=== PATIENT | female | born 1975 | race American Indian/Alaskan Native ===

== ENCOUNTER 2019-02-24 08:59 | Emergency (ER) | payer OTHER ==
[2019-02-24 09:08] VITALS: BP 180/91
--- NOTE | 2019-02-24 09:43 | Emergency Department Report ---
Abscess Boil HPI - HPI Chief Complaint: Skin/Abscess/Foreign Body Stated Complaint: BOIL Time Seen by Provider: 02/24/19 09:31 Duration: 2 Days Location: Perianal Severity: Moderate History: Yes Pain, Yes Purulent Drainage, No Fever, No Numbness, No Foreign Body, No Previous History, No Insect Bite HPI: This is a 43-year-old -Af[place] female who presents to the emergency room with a painful abscess to left labia for 2 days. She reports noticing drainage in route to the emergency room. Reports continued pain. Home Medications: Previous Rx's Medication Instructions Recorded Last Taken Type Sulfamethoxazole/Trimethoprim 1 each PO BID #20 tablet 02/24/19 Unknown Rx [Bactrim DS TAB] Allergies/Adverse Reactions: Allergies Allergy/AdvReac Type Severity Reaction Status Date / Time No Known Allergies Allergy Unverified 02/24/19 09:01 ED Review of Systems ROS: Stated complaint: BOIL Other details as noted in HPI Constitutional: denies: chills, fever Respiratory: denies: cough, shortness of breath, wheezing Cardiovascular: denies: chest pain, palpitations Gastrointestinal: denies: abdominal pain, nausea, diarrhea Skin: lesions (left labia abscess with drainage). denies: rash Neurological: denies: headache, weakness, paresthesias Psychiatric: denies: anxiety, depression ED Past Medical Hx - Past Medical History Previous Medical History?: Yes Hx Hypertension: Yes - Surgical History Past Surgical History?: Yes Hx Cholecystectomy: Yes - Social History Smoking Status: Never Smoker Substance Use Type: None - Medications Home Medications: Home Medications Medication Instructions Recorded Confirmed Last Taken Type Sulfamethoxazole/Trimethoprim 1 each PO BID #20 tablet 02/24/19 Unknown Rx [Bactrim DS TAB] ED Abscess Boil Physical Exam - Exam General: Vital signs noted. No distress. Alert and acting appropriately. Front/Back of Body, Lg (Color): 1 - 1 cm non-fluctuant nodule to left labia majora, tenderness, serosanguineous drainage, no erythema Size: 1 cm Exam: Yes Tenderness, Yes Normal Neurologic Exam, Yes Normal Circulation, No Fluctuance, No Surrounding Cellulites/Erythema, No Lymphangitis, No Crepitation, No Heart Murmur ED Course Vital Signs 02/24/19 09:07 Temperature 98.7 F Pulse Rate 84 Respiratory 16 Rate Blood Pressure 180/91 [Right] O2 Sat by Pulse 97 Oximetry Critical care attestation.: If time is entered above; I have spent that time in minutes in the direct care of this critically ill patient, excluding procedure time. ED Medical Decision Making - Medical Decision Making Patient is stable and examined by me. Physical assessment of 1 cm nonfluctuance nodule to left labia majora. No acute signs of distress noted. I&D not indicated. Discussed plan to start bactrim DS and ibuprofen with patient. Educated patient on follow up plan to have wound reassessed in 2-3 days. Patient agrees to ED plan of care. Discharged home and follow up with PCP in 2-3 days. ED Disposition Clinical Impression: Bartholin's gland abscess Disposition: TO HOME OR SELFCARE Is pt being admited?: No Condition: Stable Instructions: Abscess (ED) Additional Instructions: Complete full round of antibiotic as prescribed. Follow up with PCP or ER in 2-3 days for wound reevaluation. Return to ER if foul smelling discharge, swelling, or severe pain to wound. Prescriptions: Sulfamethoxazole/Trimethoprim [Bactrim DS TAB] 1 each PO BID #20 tablet Referrals: [facility] [Outside] - 3-5 Days [facility] [Outside] - 3-5 Days [facility] [Outside] - 3-5 Days Forms: Work/School Release Form(ED) Time of Disposition: 09:52
== END 2019-02-24 09:50 | disposition home or self-care (01) ==
LOC: ED 08:59
DX: N75.1 Abscess of Bartholin's gland (principal); I10 Essential (primary) hypertension; Z90.49 Acquired absence of other specified parts of digestive tract; Z79.899 Other long term (current) drug therapy

== ENCOUNTER 2019-09-13 18:00 | Emergency (ER) | payer OTHER ==
[2019-09-13] MEDS ORDERED: cloNIDine 0.2 MG TAB PO STA (18:19)
--- NOTE | 2019-09-13 18:44 | Emergency Department Report ---
ED General Adult HPI - General Chief complaint: Dental/Oral Stated complaint: TOOTHACHE/HBP Source: patient Mode of arrival: Ambulatory Limitations: No Limitations - History of Present Illness Initial comments: 44-year-old morbidly obese -[place] female with a past medical history of hypertension for which she is noncompliant with the current medication presents emergency department seeking treatment for her hypertension. She was at her dentist to receive treatment for a a tooth however was refused due to her hypertension. She reports being asymptomatic but unable to get in with her primary care provider for further treatment options Quality: dull Consistency: constant Improves with: none Worsens with: none Associated Symptoms: denies other symptoms Treatments Prior to Arrival: none - Related Data Previous Rx's Medication Instructions Recorded Last Taken Type Sulfamethoxazole/Trimethoprim 1 each PO BID #20 tablet 02/24/19 Unknown Rx [Bactrim DS TAB] amLODIPine 10 mg PO DAILY #20 tab 09/13/19 Unknown Rx Allergies Allergy/AdvReac Type Severity Reaction Status Date / Time No Known Allergies Allergy Unverified 02/24/19 09:01 ED Review of Systems ROS: Stated complaint: TOOTHACHE/HBP Other details as noted in HPI Comment: All other systems reviewed and negative ED Past Medical Hx - Past Medical History Previous Medical History?: Yes Hx Hypertension: Yes - Surgical History Past Surgical History?: Yes Hx Cholecystectomy: Yes - Social History Smoking Status: Never Smoker Substance Use Type: None - Medications Home Medications: Home Medications Medication Instructions Recorded Confirmed Last Taken Type Sulfamethoxazole/Trimethoprim 1 each PO BID #20 tablet 02/24/19 Unknown Rx [Bactrim DS TAB] amLODIPine 10 mg PO DAILY #20 tab 09/13/19 Unknown Rx ED Physical Exam - General Limitations: No Limitations General appearance: alert, in no apparent distress - Head Head exam: Present: atraumatic, normocephalic - Eye Eye exam: Present: normal appearance, PERRL, EOMI Pupils: Present: normal accommodation - ENT ENT exam: Present: normal exam, normal orophraynx, mucous membranes moist, TM's normal bilaterally - Neck Neck exam: Present: normal inspection - Respiratory Respiratory exam: Present: normal lung sounds bilaterally. Absent: respiratory distress - Cardiovascular Cardiovascular Exam: Present: regular rate, normal rhythm. Absent: systolic murmur, diastolic murmur, rubs, gallop - GI/Abdominal GI/Abdominal exam: Present: soft, normal bowel sounds - Extremities Exam Extremities exam: Present: normal inspection - Back Exam Back exam: Present: normal inspection - Neurological Exam Neurological exam: Present: alert, oriented X3 - Psychiatric Psychiatric exam: Present: normal affect, normal mood - Skin Skin exam: Present: warm, dry, intact, normal color. Absent: rash ED Course Vital Signs 09/13/19 18:06 Temperature 98.9 F Pulse Rate 72 Respiratory 16 Rate Blood Pressure 225/102 O2 Sat by Pulse 98 Oximetry Critical care attestation.: If time is entered above; I have spent that time in minutes in the direct care of this critically ill patient, excluding procedure time. ED Disposition Clinical Impression: Hypertension Disposition: DC-01 TO HOME OR SELFCARE Is pt being admited?: No Does the pt Need Aspirin: No Condition: Stable Instructions: Hypertension (ED), DASH Eating Plan (ED), Low Sodium Diet (ED) Prescriptions: amLODIPine 10 mg PO DAILY #20 tab Referrals: PRIMARY CAREMD [Primary Care Provider] - 3-5 Days ANTONI SIMS MD [Staff Physician] - 3-5 Days
[2019-09-13 19:48] VITALS: BP 162/98
== END 2019-09-13 20:32 | disposition home or self-care (01) ==
LOC: ED 18:00
DX: I10 Essential (primary) hypertension (principal); K08.89 Other specified disorders of teeth and supporting structures; Z90.49 Acquired absence of other specified parts of digestive tract; Z79.899 Other long term (current) drug therapy
CPT/HCPCS: 99282

== ENCOUNTER 2020-12-17 21:42 | Inpatient (IN) | payer OTHER, SELFPAY ==
[2020-12-17] MEDS ORDERED: dexAMETHasone 4 MG/ML VIAL IM ONE (22:40)
[2020-12-17] MEDS ORDERED: ALBUTEROL 2.5 MG/3 ML NEBU IH ONE (22:40)
--- NOTE | 2020-12-17 22:42 | Event Note ---
ED Screening Note ED Screening Note: 45-year-old [place] female with elevated BMI and past medical history of hypertension asthma department complaining of a 1+ week history of progressive worsening dyspnea associated with cough and mucus production. Had a Covid test done 3 days ago but is yet to receive the Covid results. No diarrhea no con stipation no lotion any swelling no hemoptysis no hematemesis hematochezia This initial assessment/diagnostic orders/clinical plan/treatment(s) is/are subject to change based on patients health status, clinical progression and re- assessment by fellow clinical providers in the ED. Further treatment and workup at subsequent clinical providers discretion. Patient/guardian urged not to elope from the ED as their condition may be serious if not clinically assessed and managed. Initial orders include: Chest x-ray, labs, ambulatory pulse oximetry facemask on patient
[2020-12-17] MEDS ORDERED: ACETAMINOPHEN 500 MG TAB PO ONE (22:44)
--- NOTE | 2020-12-17 23:08 | XRay Report ---
CHEST 2 VIEWS INDICATION / CLINICAL INFORMATION: SOB and Cough Covid. FINDINGS: SUPPORT DEVICES: None. HEART / MEDIASTINUM: No significant abnormality. LUNGS / PLEURA: Severe bilateral airspace pneumonia. Signer Name: Ze Dubois MD Signed: 12/17/2020 11:04 PM Workstation Name: [id number]
--- NOTE | 2020-12-17 23:32 | Emergency Department Report ---
ED Shortness of Breath HPI - General Chief Complaint: Dyspnea/Respdistress Stated Complaint: SOB Time Seen by Provider: 12/17/20 22:39 Source: patient Mode of arrival: Ambulatory Limitations: No Limitations - History of Present Illness Initial Comments: 45-year-old Chinese female with elevated BMI and past medical history of hypertension asthma department complaining of a 1+ week history of progressive worsening dyspnea associated with cough and mucus production. Had a Covid test done 3 days ago but is yet to receive the Covid results. No diarrhea no constipation no lotion any swelling no hemoptysis no hematemesis hematochezia Complaint: shortness of breath -: Gradual Consistency: constant Improves With: nothing Worsens With: exertion, movement - Related Data Previous Rx's Medication Instructions Recorded Last Taken Type Sulfamethoxazole/Trimethoprim 1 each PO BID #20 tablet 02/24/19 Unknown Rx [Bactrim DS TAB] amLODIPine 10 mg PO DAILY #20 tab 09/13/19 Unknown Rx Allergies Allergy/AdvReac Type Severity Reaction Status Date / Time No Known Allergies Allergy Verified 12/17/20 22:43 ED Review of Systems ROS: Stated complaint: SOB Other details as noted in HPI Comment: All other systems reviewed and negative ED Past Medical Hx - Past Medical History Previous Medical History?: Yes Hx Hypertension: Yes - Surgical History Past Surgical History?: Yes Hx Cholecystectomy: Yes - Social History Smoking Status: Never Smoker Substance Use Type: None - Medications Home Medications: Home Medications Medication Instructions Recorded Confirmed Last Taken Type Sulfamethoxazole/Trimethoprim 1 each PO BID #20 tablet 02/24/19 Unknown Rx [Bactrim DS TAB] amLODIPine 10 mg PO DAILY #20 tab 09/13/19 Unknown Rx ED Physical Exam - General Limitations: No Limitations General appearance: alert, in distress - Head Head exam: Present: atraumatic, normocephalic - Eye Eye exam: Present: normal appearance - ENT ENT exam: Present: mucous membranes moist - Neck Neck exam: Present: normal inspection - Respiratory Respiratory exam: Present: normal lung sounds bilaterally, decreased breath sounds. Absent: respiratory distress - Cardiovascular Cardiovascular Exam: Present: regular rate, normal rhythm. Absent: systolic murmur, diastolic murmur, rubs, gallop - GI/Abdominal GI/Abdominal exam: Present: soft, normal bowel sounds - Extremities Exam Extremities exam: Present: normal inspection - Back Exam Back exam: Present: normal inspection - Neurological Exam Neurological exam: Present: alert, oriented X3 - Psychiatric Psychiatric exam: Present: normal affect, normal mood - Skin Skin exam: Present: warm, dry, intact, normal color. Absent: rash ED Course Vital Signs 12/17/20 12/17/20 12/17/20 22:40 22:50 23:17 Temperature 102.6 F H Pulse Rate 102 H Pulse Rate [ 100 H Bilateral] Respiratory 18 18 Rate Respiratory 38 H Rate [Bilateral ] Blood Pressure 137/94 [Left] O2 Sat by Pulse 87 Oximetry - Consultations Consultation #1: 12/18/20 00:[address] Wills for admission. Critical care attestation.: If time is entered above; I have spent that time in minutes in the direct care of this critically ill patient, excluding procedure time. ED Disposition Clinical Impression: Hypoxemia, Pneumonia of both lower lobes Disposition: ADMITTED INPATIENT Is pt being admited?: Yes Does the pt Need Aspirin: No Condition: Stable Instructions: Bacterial Pneumonia (ED)
[2020-12-17] MEDS ORDERED: cefTRIAXone/NS 1 GM/50 ML 1 GM/50 ML BAG IV ONE (23:33)
[2020-12-17] MEDS ORDERED: AZITHROMYCIN/NS 500 MG/250 ML 500 MG/250 ML BAG IV ONE (23:36)
[2020-12-18 00:03] LABS: Basophils % (Auto) 0.3 % (0.0-1.8); Hematocrit 36.8 % (30.3-42.9); Hemoglobin 12.3 gm/dl (10.1-14.3); Lymphocytes # (Auto) 1.3 K/mm3 (1.2-5.4); Lymphocytes % (Auto) 25.7 % (13.4-35.0); Mean Corpuscular HGB Conc 34 % (30-34); Mean Corpuscular Volume 88 fl (79-97); Monocytes # (Auto) 0.4 K/mm3 (0.0-0.8); Monocytes % (Auto) 7.9 % (0.0-7.3); Platelet Count 238 K/mm3 (140-440); Red Blood Count 4.16 M/mm3 (3.65-5.03); Red Cell Distribution Width 13.9 % (13.2-15.2)
[2020-12-18 00:13] LABS: Alanine Aminotransferase 30 units/L (7-56); Albumin 3.2 g/dL (3.9-5); BUN/Creatinine Ratio 11; Blood Urea Nitrogen 11 mg/dL (7-17); Calcium 8.2 mg/dL (8.4-10.2); Hemolysis Index 3
[2020-12-18] MEDS ORDERED: ACETAMINOPHEN 325 MG TAB PO PRN (01:52)
[2020-12-18] MEDS ORDERED: ONDANSETRON 4 MG/2 ML INJ IV PRN (01:52)
[2020-12-18] MEDS ORDERED: ALBUTEROL 2.5 MG/3 ML NEBU IH PRN (01:52)
[2020-12-18] MEDS ORDERED: hydrALAZINE 20 MG/1 ML INJ IV PRN (01:55)
--- NOTE | 2020-12-18 02:01 | History and Physical Report ---
History of Present Illness Date of examination: 12/18/20 Date of admission: 12/18/20 Chief complaint: Shortness of breath Coughing History of present illness: 45-year-old female with past medical history of hypertension asthma and obesity was brought to the emergency room because of a 1+ week history of progressive worsening dyspnea associated with cough and mucus production. Had a Covid test done 3 days ago but is yet to receive the Covid results. No diarrhea no constipation no lotion any swelling no hemoptysis no hematemesis hematochezia Patient never take any Covid vaccination. In the emergency room patient chest x-ray showed severe bilateral airspace pneumonia. Med rec is done and advanced discharge planning is initiated Past History Past Medical History: hypertension, other (Obesity asthma) Medications and Allergies Allergies Allergy/AdvReac Type Severity Reaction Status Date / Time No Known Allergies Allergy Verified 12/17/20 22:43 Home Medications Medication Instructions Recorded Confirmed Last Taken Type Sulfamethoxazole/Trimethoprim 1 each PO BID #20 tablet 02/24/19 Unknown Rx [Bactrim DS TAB] amLODIPine 10 mg PO DAILY #20 tab 09/13/19 Unknown Rx Review of Systems All systems: negative Cardiovascular: shortness of breath, dyspnea on exertion Respiratory: cough, cough with sputum, shortness of breath, dyspnea on exertion Exam - Constitutional Vitals: Temp Pulse Resp BP Pulse Ox 102.6 F H 100 H 38 H 137/94 87 12/17/20 22:40 12/17/20 23:17 12/17/20 23:17 12/17/20 22:40 12/17/20 22:40 General appearance: Present: no acute distress, well-nourished - EENT Eyes: Present: PERRL ENT: hearing intact, clear oral mucosa - Neck Neck: Present: supple, normal ROM - Respiratory Respiratory effort: normal Respiratory: bilateral: diminished - Cardiovascular Heart Sounds: Present: S1 & S2. Absent: rub, click - Extremities Extremities: pulses symmetrical, No edema Peripheral Pulses: within normal limits - Abdominal General gastrointestinal: Present: soft, non-tender, non-distended, normal bowel sounds Female genitourinary: Present: normal - Integumentary Integumentary: Present: clear, warm, dry - Musculoskeletal Musculoskeletal: gait normal, strength equal bilaterally - Psychiatric Psychiatric: appropriate mood/affect, intact judgment & insight - Neurologic Neurologic: CNII-XII intact, moves all extremities Results - Labs CBC & Chem 7: 12/17/20 23:36 12/17/20 23:36 Labs: Laboratory Last Values WBC 5.1 K/mm3 (4.5-11.0) 12/17/20 23:36 RBC 4.16 M/mm3 (3.65-5.03) 12/17/20 23:36 Hgb 12.3 gm/dl (10.1-14.3) 12/17/20 23:36 Hct 36.8 % (30.3-42.9) 12/17/20 23:36 MCV 88 fl (79-97) 12/17/20 23:36 MCH 30 pg (28-32) 12/17/20 23:36 MCHC 34 % (30-34) 12/17/20 23:36 RDW 13.9 % (13.2-15.2) 12/17/20 23:36 Plt Count 238 K/mm3 (140-440) 12/17/20 23:36 Lymph % (Auto) 25.7 % (13.4-35.0) 12/17/20 23:36 [place] % (Auto) 7.9 % (0.0-7.3) H 12/17/20 23:36 Eos % (Auto) 0.0 % (0.0-4.3) 12/17/20 23:36 Baso % (Auto) 0.3 % (0.0-1.8) 12/17/20 23:36 Lymph # (Auto) 1.3 K/mm3 (1.2-5.4) 12/17/20 23:36 [place] # (Auto) 0.4 K/mm3 (0.0-0.8) 12/17/20 23:36 Eos # (Auto) 0.0 K/mm3 (0.0-0.4) 12/17/20 23:36 Baso # (Auto) 0.0 K/mm3 (0.0-0.1) 12/17/20 23:36 Seg Neutrophils % 66.1 % (40.0-70.0) 12/17/20 23:36 Seg Neutrophils # 3.4 K/mm3 (1.8-7.7) 12/17/20 23:36 Sodium 137 mmol/L (137-145) 12/17/20 23:36 Potassium 3.5 mmol/L (3.6-5.0) L 12/17/20 23:36 Chloride 102.0 mmol/L (98-107) 12/17/20 23:36 Carbon Dioxide 24 mmol/L (22-30) 12/17/20 23:36 Anion Gap 15 mmol/L 12/17/20 23:36 BUN 11 mg/dL (7-17) 12/17/20 23:36 Creatinine 1.0 mg/dL (0.6-1.2) 12/17/20 23:36 Estimated GFR > 60 ml/min 12/17/20 23:36 BUN/Creatinine Ratio 11 % 12/17/20 23:36 Glucose 105 mg/dL (65-100) H 12/17/20 23:36 Calcium 8.2 mg/dL (8.4-10.2) L 12/17/20 23:36 Total Bilirubin 0.30 mg/dL (0.1-1.2) 12/17/20 23:36 AST 68 units/L (5-40) H 12/17/20 23:36 ALT 30 units/L (7-56) 12/17/20 23:36 Alkaline Phosphatase 65 units/L (35-129) 12/17/20 23:36 Total Protein 7.2 g/dL (6.3-8.2) 12/17/20 23:36 Albumin 3.2 g/dL (3.9-5) L 12/17/20 23:36 Albumin/Globulin Ratio 0.8 % 12/17/20 23:36 - Imaging and Cardiology Chest x-ray: report reviewed Assessment and Plan VTE prophylaxis?: Chemical Plan of care discussed with patient/family: Yes - Patient Problems (1) Acute respiratory failure with hypoxia Current Visit: Yes Status: Acute Plan to address problem: Admit the patient to the medical floor. Oxygen by nasal cannula 3 L/min. Albuterol via nebulizer every 4 hours as needed. Rocephin 2 g IV daily. Zithromax 500 mg IV daily. Dexamethasone 6 mg IV daily. Blood cultures sputum culture. Follow Covid PCR and Covid inflammatory marker. Reconsult pulmonary as well as infectious disease for evaluation. (2) Suspected COVID-19 virus infection Current Visit: Yes Status: Acute Plan to address problem: Oxygen by nasal cannula 3 L/min. Albuterol via nebulizer every 4 hours as need ed. Rocephin 2 g IV daily. Zithromax 500 mg IV daily. Dexamethasone 6 mg IV daily. Blood cultures sputum culture. Follow Covid PCR and Covid inflammatory marker. Reconsult pulmonary as well as infectious disease for evaluation. (3) Pneumonia Current Visit: Yes Status: Acute Plan to address problem: Oxygen by nasal cannula 3 L/min. Albuterol via nebulizer every 4 hours as needed. Rocephin 2 g IV daily. Zithromax 500 mg IV daily. Blood cultures sputum culture. (4) Hypertension Current Visit: Yes Status: Acute Plan to address problem: Hydralazine 10 mg IV every 6 hours as needed. Amlodipine 10 mg p.o. daily. We will monitor the blood pressure closely (5) Asthma Current Visit: Yes Status: Acute Plan to address problem: Oxygen by nasal cannula 3 L/min. Albuterol via nebulizer every 4 hours as needed. Dexamethasone 6 mg IV daily. Reconsult pulmonary . (6) DVT prophylaxis Current Visit: Yes Status: Acute Plan to address problem: Heparin 5000 units subcu every 8 hours for DVT prophylaxis. Pepcid 20 mg p.o. twice daily for GI prophylaxis. Patient is a full code
[2020-12-18] MEDS: HEPARIN 5,000 UNIT/1 ML VIAL SUB-Q SCH ×2 (07:24→14:42)
[2020-12-18] MEDS ORDERED: dexAMETHasone 4 MG/ML VIAL IV SCH (10:00)
[2020-12-18] MEDS: AZITHROMYCIN/NS 500 MG/250 ML 500 MG/250 ML BAG IV SCH (10:20)
[2020-12-18] MEDS: cefTRIAXone/NS 2 GM/100 ML 2 GM/100 ML BAG IV SCH (10:20)
[2020-12-18] MEDS: FAMOTIDINE 20 MG TAB PO SCH (10:24)
[2020-12-18] MEDS: amLODIPine 10 MG TAB PO SCH (10:24)
--- NOTE | 2020-12-18 14:10 | Consultation ---
History of Present Illness - Reason for Consult Consult date: 12/18/20 Pneumonia, hypoxia Requesting physician: ALFREDO ALONZO - History of Present Illness The patient is a 45-year-old female with morbid obesity, asthma, hypertension admitted with shortness of breath, cough. Got Covid test done as an outpatient but results are not available. Upon evaluation in the ER, febrile with a T-max of 102.6 F, noted to be hypoxic requiring nonrebreather mask. Labs showed normal WBC, creatinine normal, mild transaminitis. Other markers are pending. Chest x-ray showed severe bilateral airspace disease. Review of Systems: reviewed in the chart, unable to obtain, minimize risk of transmission Past History Past Medical History: hypertension, other (Obesity asthma) Medications and Allergies Allergies Allergy/AdvReac Type Severity Reaction Status Date / Time No Known Allergies Allergy Verified 12/17/20 22:43 Home Medications Medication Instructions Recorded Confirmed Last Taken Type Sulfamethoxazole/Trimethoprim 1 each PO BID #20 tablet 02/24/19 Unknown Rx [Bactrim DS TAB] amLODIPine 10 mg PO DAILY #20 tab 09/13/19 Unknown Rx Active Meds: Active Medications Acetaminophen (Acetaminophen 325 Mg Tab) 650 mg PO Q4H PRN PRN Reason: Pain MILD(1-3)/Fever >100.5/CRISOSTOMO Albuterol (Albuterol 2.5 Mg/3 Ml Nebu) 2.5 mg IH Q3HRT PRN PRN Reason: Shortness Of Breath Amlodipine Besylate (Amlodipine 10 Mg Tab) 10 mg PO DAILY [facility] Last Admin: 12/18/20 10:24 Dose: 10 mg Documented by: Dexamethasone (Dexamethasone 4 Mg/Ml Vial) 6 mg IV DAILY [facility] Stop: 12/26/20 10:01 Last Admin: 12/18/20 10:19 Dose: 6 mg Documented by: Famotidine (Famotidine 20 Mg Tab) 20 mg PO BID [facility] Last Admin: 12/18/20 10:24 Dose: 20 mg Documented by: Heparin Sodium (Porcine) (Heparin 5,000 Unit/1 Ml Vial) 5,000 unit SUB-Q Q8HR [facility] Last Admin: 12/18/20 07:24 Dose: 5,000 unit Documented by: Hydralazine HCl (Hydralazine 20 Mg/1 Ml Inj) 10 mg IV Q6H PRN PRN Reason: Blood Pressure Hydromorphone HCl (Hydromorphone 1 Mg/1 Ml Inj) 0.5 mg IV Q3H PRN PRN Reason: Pain , Severe (7-10) Ceftriaxone Sodium (Rocephin/Ns 2 Gm/100 Ml) 2 gm in 100 mls @ 200 mls/hr IV Q24HR [facility]; Protocol Last Admin: 12/18/20 10:20 Dose: 200 mls/hr Documented by: Azithromycin (Zithromax/Ns) 500 mg in 250 mls @ 250 mls/hr IV Q24HR [facility]; Protocol Last Admin: 12/18/20 10:20 Dose: 250 mls/hr Documented by: Ondansetron HCl (Ondansetron 4 Mg/2 Ml Inj) 4 mg IV Q8H PRN PRN Reason: Nausea And Vomiting Oxycodone/Acetaminophen (Oxycodone /Acetaminophen 5-325mg Tab) 1 tab PO Q6H PRN PRN Reason: Pain, Moderate (4-6) Sodium Chloride (Sodium Chloride 0.9% 10 Ml Flush Syringe) 10 ml IV BID [facility] Last Admin: 12/18/20 10:20 Dose: 10 ml Documented by: Sodium Chloride (Sodium Chloride 0.9% 10 Ml Flush Syringe) 10 ml IV PRN PRN PRN Reason: LINE FLUSH Physical Examination - Physical Exam Narrative exam: Physical Exam (reviewed in chart to minimize risk of transmission) Constitutional: deferred Head, Ears, Nose: deferred Eyes: deferred Neck: deferred Oral: deferred Cardiovascular: deferred Respiratory: deferred GI: deferred Musculoskeletal: deferred Skin: deferred Hem/Lymphatic: deferred Psych: deferred Neurological: deferred - Constitutional Vitals: Vital Signs Temp Pulse Resp BP Pulse Ox 102.6 F H 85 16 143/80 96 12/17/20 22:40 12/18/20 07:47 12/18/20 07:47 12/18/20 07:47 12/18/20 07:47 Temperature -Last 24 Hours Temperature 102.6 F Results - Labs CBC & Chem 7: 12/17/20 23:36 12/17/20 23:36 Labs: Abnormal lab results 12/17/20 12/17/20 Range/Units 23:36 23:36 [place] % (Auto) 7.9 H (0.0-7.3) % Potassium 3.5 L (3.6-5.0) mmol/L Glucose 105 H (65-100) mg/dL Calcium 8.2 L (8.4-10.2) mg/dL AST 68 H (5-40) units/L Albumin 3.2 L (3.9-5) g/dL - Imaging and Cardiology Chest x-ray: report reviewed, image reviewed (b/l pneumonia) Assessment and Plan Cultures: SARS CoV2 PCR: Pending A/P: 45-year-old female with morbid obesity, asthma, hypertension admitted with: #Bilateral pneumonia: High suspicion for COVID-19 #Acute hypoxic respiratory failure: #Transaminitis #Morbid obesity Recs: IV/PO Dexamethasone 10 mg daily x 10 days High suspicion for COVID-19, remdesivir ordered Continue empiric antibiotics for now Follow-up markers, if CRP high and if hypoxia worsens to more than 30 L/min, please administer Actemra if available prophylactic anticoagulation based on d-dimer per hospital protocol trend ferritin, LDH, d-dimer, CRP every 2-3 days for risk stratification and to assess disease progression Cristian Frank MD, FACP [facility] O: [phone] F: [phone]
--- NOTE | 2020-12-18 15:04 | Event Note ---
Date: 12/18/20 Patient seen and examined This is the second visit after midnight Patient tested positive for COVID-19 Placed on nonrebreather, ID consulted initiated on Dexamethasone and remdesivir Continue to follow inflammatory markers and supportive care Guarded prognosis It took me about 28 minutes to reevaluate and reasses this patient, discussed with RN/CM, review medical documents, lab results, imaging, medication list and placing order.
[2020-12-18 15:47] LABS: Alanine Aminotransferase 32 units/L (7-56); Albumin 3.6 g/dL (3.9-5); Blood Urea Nitrogen 12 mg/dL (7-17); Calcium 8.9 mg/dL (8.4-10.2); Hemolysis Index 17
[2020-12-18 15:50] LABS: BUN/Creatinine Ratio 20
[2020-12-18] MEDS: dexAMETHasone 4 MG/ML VIAL IV SCH (15:59)
[2020-12-18] MEDS ORDERED: REMDESIVIR 200 MG in SODIUM CHLORIDE 0.9% 250ML 250 ML IV ONE (17:00)
[2020-12-18] MEDS: SODIUM CHLORIDE 0.9% 50 ML IVPB IV SCH (17:05)
[2020-12-19] MEDS: FAMOTIDINE 20 MG TAB PO SCH ×3 (00:08→22:06)
[2020-12-19] MEDS: HEPARIN 5,000 UNIT/1 ML VIAL SUB-Q SCH ×4 (00:08→22:07)
[2020-12-19] MEDS: HYDROmorphone 1 MG/1 ML INJ IV PRN ×2 (00:23→22:10)
[2020-12-19 04:59] LABS: Basophils # (Auto) 0.1 K/mm3 (0.0-0.1); Hemoglobin 12.8 gm/dl (10.1-14.3); Lymphocytes # (Auto) 0.8 K/mm3 (1.2-5.4); Lymphocytes % (Auto) 10.3 % (13.4-35.0); Mean Corpuscular HGB Conc 35 % (30-34); Mean Corpuscular Volume 88 fl (79-97); Monocytes # (Auto) 0.4 K/mm3 (0.0-0.8); Monocytes % (Auto) 4.9 % (0.0-7.3); Platelet Count 334 K/mm3 (140-440); Red Blood Count 4.21 M/mm3 (3.65-5.03)
[2020-12-19 05:26] LABS: Alanine Aminotransferase 35 units/L (7-56); Albumin 3.2 g/dL (3.9-5); Blood Urea Nitrogen 15 mg/dL (7-17); Calcium 9.1 mg/dL (8.4-10.2); Hemolysis Index 7
[2020-12-19 05:28] LABS: BUN/Creatinine Ratio 21
[2020-12-19] MEDS: CHOLECALCIFEROL (VIT D3) 5,000 UNIT TAB PO SCH (10:15)
[2020-12-19] MEDS: ASCORBIC ACID 500 MG TAB PO SCH ×2 (10:15→22:06)
--- NOTE | 2020-12-19 11:32 | Progress Note ---
Assessment and Plan Assessment and plan: - Patient Problems (1) Acute respiratory failure with hypoxia Current Visit: Yes Status: Acute Plan to address problem: Admit the patient to the medical floor. Oxygen by nasal cannula 3 L/min. Al buterol via nebulizer every 4 hours as needed. Rocephin 2 g IV daily. Zithromax 500 mg IV daily. Dexamethasone 6 mg IV daily. Blood cultures sputum culture. Follow Covid PCR and Covid inflammatory marker. Reconsult pulmonary as well as infectious disease for evaluation. (2) Suspected COVID-19 virus infection Current Visit: Yes Status: Acute Plan to address problem: Oxygen by nasal cannula 3 L/min. Albuterol via nebulizer every 4 hours as needed. Rocephin 2 g IV daily. Zithromax 500 mg IV daily. Dexamethasone 6 mg IV daily. Blood cultures sputum culture. Follow Covid PCR and Covid infla mmatory marker. Reconsult pulmonary as well as infectious disease for evaluation. (3) Pneumonia Current Visit: Yes Status: Acute Plan to address problem: Oxygen by nasal cannula 3 L/min. Albuterol via nebulizer every 4 hours as needed. Rocephin 2 g IV daily. Zithromax 500 mg IV daily. Blood cultures sputum culture. (4) Hypertension Current Visit: Yes Status: Acute Plan to address problem: Hydralazine 10 mg IV every 6 hours as needed. Amlodipine 10 mg p.o. daily. We will monitor the blood pressure closely (5) Asthma Current Visit: Yes Status: Acute Plan to address problem: Oxygen by nasal cannula 3 L/min. Albuterol via nebulizer every 4 hours as needed. Dexamethasone 6 mg IV daily. Reconsult pulmonary . (6) DVT prophylaxis Current Visit: Yes Status: Acute Plan to address problem: Heparin 5000 units subcu every 8 hours for DVT prophylaxis. Pepcid 20 mg p.o. twice daily for GI prophylaxis. Patient is a full code 12/19/20 Patient with Covid-19 pneumonia, with acute resp failiure. On Oxygen by NC at 15 l/min. ID and Pulm consulted. Hypoklaemia. Give oral K-dur. History Interval history: SOB Cough Hospitalist Physical - Physical exam Narrative exam: Gen:Not in acute distress, lying in bed, HEENT:Normocephalic, atraumatic Neck:supple, no JVD Lungs: bilateral rales, no wheeze Heart:S1 and S2 reg, no murmurs, rubs or gallop Abd:Soft, non tender, non distended, normal bowel sounds Ext:No edema. no clubbing, no cyanosis Neuro:Awake, alert, oriented X 3, moves all ext, No focal neurological signs - Constitutional Vitals: Temp Pulse Resp BP Pulse Ox 102.6 F H 139 H 45 H 118/80 83 L 12/17/20 22:40 12/19/20 00:30 12/19/20 00:30 12/19/20 00:30 12/19/20 00:30 General appearance: Present: no acute distress, well-nourished Results - Labs CBC & Chem 7: 12/19/20 04:19 12/19/20 04:19 Labs: Laboratory Last Values WBC 7.5 K/mm3 (4.5-11.0) 12/19/20 04:19 RBC 4.21 M/mm3 (3.65-5.03) 12/19/20 04:19 Hgb 12.8 gm/dl (10.1-14.3) 12/19/20 04:19 Hct 37.0 % (30.3-42.9) 12/19/20 04:19 MCV 88 fl (79-97) 12/19/20 04:19 MCH 30 pg (28-32) 12/19/20 04:19 MCHC 35 % (30-34) H 12/19/20 04:19 RDW 14.0 % (13.2-15.2) 12/19/20 04:19 Plt Count 334 K/mm3 (140-440) 12/19/20 04:19 Lymph % (Auto) 10.3 % (13.4-35.0) L 12/19/20 04:19 [place] % (Auto) 4.9 % (0.0-7.3) 12/19/20 04:19 Eos % (Auto) 0.0 % (0.0-4.3) 12/19/20 04:19 Baso % (Auto) 1.0 % (0.0-1.8) 12/19/20 04:19 Lymph # (Auto) 0.8 K/mm3 (1.2-5.4) L 12/19/20 04:19 [place] # (Auto) 0.4 K/mm3 (0.0-0.8) 12/19/20 04:19 Eos # (Auto) 0.0 K/mm3 (0.0-0.4) 12/19/20 04:19 Baso # (Auto) 0.1 K/mm3 (0.0-0.1) 12/19/20 04:19 Seg Neutrophils % 83.8 % (40.0-70.0) H 12/19/20 04:19 Seg Neutrophils # 6.3 K/mm3 (1.8-7.7) 12/19/20 04:19 D-Dimer 310.92 ng/mlDDU (0-234) H 12/19/20 04:19 Sodium 141 mmol/L (137-145) 12/19/20 04:19 Potassium 3.5 mmol/L (3.6-5.0) L 12/19/20 04:19 Chloride 103.4 mmol/L (98-107) 12/19/20 04:19 Carbon Dioxide 27 mmol/L (22-30) 12/19/20 04:19 Anion Gap 14 mmol/L 12/19/20 04:19 BUN 15 mg/dL (7-17) 12/19/20 04:19 Creatinine 0.7 mg/dL (0.6-1.2) 12/19/20 04:19 Estimated GFR > 60 ml/min 12/19/20 04:19 BUN/Creatinine Ratio 21 % 12/19/20 04:19 Glucose 146 mg/dL (65-100) H 12/19/20 04:19 Calcium 9.1 mg/dL (8.4-10.2) 12/19/20 04:19 Ferritin 384.9 ng/mL (10.0-200.0) H 12/19/20 04:19 Total Bilirubin 0.30 mg/dL (0.1-1.2) 12/19/20 04:19 AST 66 units/L (5-40) H 12/19/20 04:19 ALT 35 units/L (7-56) 12/19/20 04:19 Alkaline Phosphatase 58 units/L (35-129) 12/19/20 04:19 C-Reactive Protein 6.40 mg/dL (0.00-1.30) H 12/19/20 04:19 Total Protein 7.0 g/dL (6.3-8.2) 12/19/20 04:19 Albumin 3.2 g/dL (3.9-5) L 12/19/20 04:19 Albumin/Globulin Ratio 0.8 % 12/19/20 04:19 Coronavirus (PCR) Positive (Negative) A 12/18/20 Unknown Active Medications - Current Medications Current Medications: Generic Name Dose Route Start Last Admin Trade Name Freq PRN Reason Stop Dose Admin Acetaminophen 650 mg 12/18/20 01:52 Acetaminophen 325 Mg Tab PO Q4H PRN Pain MILD(1-3)/Fever >100.5/CRISOSTOMO Albuterol 2.5 mg 12/18/20 01:52 12/19/20 00:23 Albuterol 2.5 Mg/3 Ml Nebu IH 2.5 mg Q3HRT PRN Administration Shortness Of Breath Amlodipine Besylate 10 mg 12/18/20 10:00 12/18/20 10:24 Amlodipine 10 Mg Tab PO 10 mg DAILY JOAO Administration Ascorbic Acid 1,000 mg 12/19/20 10:00 Ascorbic Acid 500 Mg Tab PO BID JOAO Cholecalciferol 5,000 unit 12/19/20 10:00 Cholecalciferol (Vit D3) 5,000 Unit Tab PO DAILY JOAO Dexamethasone 10 mg 12/18/20 16:00 12/18/20 15:59 Dexamethasone 4 Mg/Ml Vial IV 12/26/20 10:01 10 mg DAILY JOAO Administration Famotidine 20 mg 12/18/20 10:00 12/19/20 00:08 Famotidine 20 Mg Tab PO 20 mg BID JOAO Administration Heparin Sodium (Porcine) 5,000 unit 12/18/20 06:00 12/19/20 00:08 Heparin 5,000 Unit/1 Ml Vial SUB-Q 5,000 unit Q8HR JOAO Administration Hydralazine HCl 10 mg 12/18/20 01:55 Hydralazine 20 Mg/1 Ml Inj IV Q6H PRN Blood Pressure Hydromorphone HCl 0.5 mg 12/18/20 01:52 12/19/20 00:23 Hydromorphone 1 Mg/1 Ml Inj IV 0.5 mg Q3H PRN Administration Pain , Severe (7-10) Ceftriaxone Sodium 2 gm in 100 mls @ 200 mls/hr 12/18/20 10:00 12/18/20 10:20 Rocephin/Ns 2 Gm/100 Ml IV 200 mls/hr Q24HR JOAO Administration Protocol Azithromycin 500 mg in 250 mls @ 250 mls/hr 12/18/20 10:00 12/18/20 10:20 Zithromax/Ns IV 250 mls/hr Q24HR JOAO Administration Protocol REMDESIVIR 100 mg/ Sodium 250 mls @ 500 mls/hr 12/19/20 21:00 Chloride IV 12/22/20 21:29 Q24HR@2100 JOAO Ondansetron HCl 4 mg 12/18/20 01:52 Ondansetron 4 Mg/2 Ml Inj IV Q8H PRN Nausea And Vomiting Oxycodone/Acetaminophen 1 tab 12/18/20 01:52 Oxycodone /Acetaminophen 5-325mg Tab PO Q6H PRN Pain, Moderate (4-6) Potassium Chloride 40 meq 12/19/20 08:00 Potassium Chloride Er 20 Meq Tab PO 12/19/20 14:01 Q6H JOAO Sodium Chloride 10 ml 12/18/20 10:00 12/19/20 00:13 Sodium Chloride 0.9% 10 Ml Flush Syringe IV 10 ml BID JOAO Administration Sodium Chloride 10 ml 12/18/20 01:52 Sodium Chloride 0.9% 10 Ml Flush Syringe IV PRN PRN LINE FLUSH Sodium Chloride 50 ml 12/18/20 17:00 12/18/20 17:05 Sodium Chloride 0.9% 50 Ml Ivpb IV 12/22/20 21:01 50 ml Q24HR@2100 JOAO Administration Zinc Sulfate 220 mg 12/19/20 10:00 Zinc Sulfate 220 Mg Cap PO BID JOAO
[2020-12-19] MEDS: dexAMETHasone 4 MG/ML VIAL IV SCH (11:43)
[2020-12-19] MEDS: ZINC SULFATE 220 MG CAP PO SCH ×2 (11:43→22:05)
[2020-12-19] MEDS: POTASSIUM CHLORIDE ER 20 MEQ TAB PO SCH ×2 (11:44→14:00)
[2020-12-19] MEDS: amLODIPine 10 MG TAB PO SCH (11:44)
[2020-12-19] MEDS: cefTRIAXone/NS 2 GM/100 ML 2 GM/100 ML BAG IV SCH (11:45)
[2020-12-19] MEDS: AZITHROMYCIN/NS 500 MG/250 ML 500 MG/250 ML BAG IV SCH (11:46)
[2020-12-19] MEDS: SODIUM CHLORIDE 0.9% 50 ML IVPB IV SCH (22:05)
[2020-12-19] MEDS: REMDESIVIR 100 MG in SODIUM CHLORIDE 0.9% 250ML 250 ML IV SCH (22:05)
[2020-12-20] MEDS: HEPARIN 5,000 UNIT/1 ML VIAL SUB-Q SCH ×3 (05:47→22:45)
[2020-12-20 06:35] LABS: BUN/Creatinine Ratio 28; Blood Urea Nitrogen 22 mg/dL (7-17); Calcium 8.9 mg/dL (8.4-10.2)
[2020-12-20 06:36] LABS: Alanine Aminotransferase 34 units/L (7-56); Albumin 3.1 g/dL (3.9-5); Hemolysis Index 6
[2020-12-20] MEDS: dexAMETHasone 4 MG/ML VIAL IV SCH (10:00)
[2020-12-20] MEDS: oxyCODONE /ACETAMINOPHEN 5-325MG TAB PO PRN ×2 (11:13→22:45)
[2020-12-20] MEDS: CHOLECALCIFEROL (VIT D3) 5,000 UNIT TAB PO SCH (11:13)
[2020-12-20] MEDS: FAMOTIDINE 20 MG TAB PO SCH ×2 (11:13→22:46)
[2020-12-20] MEDS: amLODIPine 10 MG TAB PO SCH (11:13)
[2020-12-20] MEDS: ZINC SULFATE 220 MG CAP PO SCH ×2 (11:13→22:46)
[2020-12-20] MEDS: ASCORBIC ACID 500 MG TAB PO SCH ×2 (11:14→22:45)
[2020-12-20] MEDS: cefTRIAXone/NS 2 GM/100 ML 2 GM/100 ML BAG IV SCH (11:14)
[2020-12-20] MEDS: AZITHROMYCIN/NS 500 MG/250 ML 500 MG/250 ML BAG IV SCH (11:14)
--- NOTE | 2020-12-20 11:16 | Progress Note ---
Assessment and Plan Assessment and plan: - Patient Problems (1) Acute respiratory failure with hypoxia Current Visit: Yes Status: Acute Plan to address problem: Admit the patient to the medical floor. Oxygen by nasal cannula 3 L/min. Al buterol via nebulizer every 4 hours as needed. Rocephin 2 g IV daily. Zithromax 500 mg IV daily. Dexamethasone 6 mg IV daily. Blood cultures sputum culture. Follow Covid PCR and Covid inflammatory marker. Reconsult pulmonary as well as infectious disease for evaluation. (2) Suspected COVID-19 virus infection Current Visit: Yes Status: Acute Plan to address problem: Oxygen by nasal cannula 3 L/min. Albuterol via nebulizer every 4 hours as needed. Rocephin 2 g IV daily. Zithromax 500 mg IV daily. Dexamethasone 6 mg IV daily. Blood cultures sputum culture. Follow Covid PCR and Covid infla mmatory marker. Reconsult pulmonary as well as infectious disease for evaluation. (3) Pneumonia Current Visit: Yes Status: Acute Plan to address problem: Oxygen by nasal cannula 3 L/min. Albuterol via nebulizer every 4 hours as needed. Rocephin 2 g IV daily. Zithromax 500 mg IV daily. Blood cultures sputum culture. (4) Hypertension Current Visit: Yes Status: Acute Plan to address problem: Hydralazine 10 mg IV every 6 hours as needed. Amlodipine 10 mg p.o. daily. We will monitor the blood pressure closely (5) Asthma Current Visit: Yes Status: Acute Plan to address problem: Oxygen by nasal cannula 3 L/min. Albuterol via nebulizer every 4 hours as needed. Dexamethasone 6 mg IV daily. Reconsult pulmonary . (6) DVT prophylaxis Current Visit: Yes Status: Acute Plan to address problem: Heparin 5000 units subcu every 8 hours for DVT prophylaxis. Pepcid 20 mg p.o. twice daily for GI prophylaxis. Patient is a full code 12/19/20 Patient with Covid-19 pneumonia, with acute resp failiure. On Oxygen by NC at 15 l/min. ID and Pulm consulted. Hypoklaemia. Give oral K-dur. 12/20/20 Patient with Covid Pneumonia with acute respiratory failure. She is still on Oxygen by NC 15 l/min. On Remdesivir, Dexameth History Interval history: Still has shortness of breath Cough Hospitalist Physical - Physical exam Narrative exam: Gen:Not in acute distress, lying in bed, obese HEENT:Normocephalic, atraumatic Neck:supple, no JVD Lungs: bilateral rales, no wheeze Heart:S1 and S2 reg, no murmurs, rubs or gallop Abd:Soft, non tender, non distended, normal bowel sounds Ext:No edema. no clubbing, no cyanosis Neuro:Awake, alert, oriented X 3, moves all ext, No focal neurological signs - Constitutional Vitals: Temp Pulse Resp BP Pulse Ox 97.5 F L 74 20 147/84 94 12/20/20 04:59 12/20/20 04:59 12/20/20 04:59 12/20/20 04:59 12/20/20 10:00 General appearance: Present: no acute distress, well-nourished Results - Labs CBC & Chem 7: 12/19/20 04:19 12/20/20 05:21 Labs: Laboratory Last Values WBC 7.5 K/mm3 (4.5-11.0) 12/19/20 04:19 RBC 4.21 M/mm3 (3.65-5.03) 12/19/20 04:19 Hgb 12.8 gm/dl (10.1-14.3) 12/19/20 04:19 Hct 37.0 % (30.3-42.9) 12/19/20 04:19 MCV 88 fl (79-97) 12/19/20 04:19 MCH 30 pg (28-32) 12/19/20 04:19 MCHC 35 % (30-34) H 12/19/20 04:19 RDW 14.0 % (13.2-15.2) 12/19/20 04:19 Plt Count 334 K/mm3 (140-440) 12/19/20 04:19 Lymph % (Auto) 10.3 % (13.4-35.0) L 12/19/20 04:19 [place] % (Auto) 4.9 % (0.0-7.3) 12/19/20 04:19 Eos % (Auto) 0.0 % (0.0-4.3) 12/19/20 04:19 Baso % (Auto) 1.0 % (0.0-1.8) 12/19/20 04:19 Lymph # (Auto) 0.8 K/mm3 (1.2-5.4) L 12/19/20 04:19 [place] # (Auto) 0.4 K/mm3 (0.0-0.8) 12/19/20 04:19 Eos # (Auto) 0.0 K/mm3 (0.0-0.4) 12/19/20 04:19 Baso # (Auto) 0.1 K/mm3 (0.0-0.1) 12/19/20 04:19 Seg Neutrophils % 83.8 % (40.0-70.0) H 12/19/20 04:19 Seg Neutrophils # 6.3 K/mm3 (1.8-7.7) 12/19/20 04:19 D-Dimer 310.92 ng/mlDDU (0-234) H 12/19/20 04:19 Sodium 144 mmol/L (137-145) 12/20/20 05:21 Potassium 3.9 mmol/L (3.6-5.0) 12/20/20 05:21 Chloride 105.9 mmol/L (98-107) 12/20/20 05:21 Carbon Dioxide 28 mmol/L (22-30) 12/20/20 05:21 Anion Gap 14 mmol/L 12/20/20 05:21 BUN 22 mg/dL (7-17) H 12/20/20 05:21 Creatinine 0.8 mg/dL (0.6-1.2) 12/20/20 05:21 Estimated GFR > 60 ml/min 12/20/20 05:21 BUN/Creatinine Ratio 28 % 12/20/20 05:21 Glucose 137 mg/dL (65-100) H 12/20/20 05:21 POC Glucose 146 mg/dL (70-105) H 12/19/20 21:07 Calcium 8.9 mg/dL (8.4-10.2) 12/20/20 05:21 Ferritin 384.9 ng/mL (10.0-200.0) H 12/19/20 04:19 Total Bilirubin 0.30 mg/dL (0.1-1.2) 12/20/20 05:21 AST 42 units/L (5-40) H 12/20/20 05:21 ALT 34 units/L (7-56) 12/20/20 05:21 Alkaline Phosphatase 59 units/L (35-129) 12/20/20 05:21 C-Reactive Protein 6.40 mg/dL (0.00-1.30) H 12/19/20 04:19 Total Protein 6.8 g/dL (6.3-8.2) 12/20/20 05:21 Albumin 3.1 g/dL (3.9-5) L 12/20/20 05:21 Albumin/Globulin Ratio 0.8 % 12/20/20 05:21 Coronavirus (PCR) Positive (Negative) A 12/18/20 Unknown Jarrett/IV: Voiding Method Toilet Active Medications - Current Medications Current Medications: Generic Name Dose Route Start Last Admin Trade Name Freq PRN Reason Stop Dose Admin Acetaminophen 650 mg 12/18/20 01:52 Acetaminophen 325 Mg Tab PO Q4H PRN Pain MILD(1-3)/Fever >100.5/CRISOSTOMO Albuterol 2.5 mg 12/18/20 01:52 12/19/20 00:23 Albuterol 2.5 Mg/3 Ml Nebu IH 2.5 mg Q3HRT PRN Administration Shortness Of Breath Amlodipine Besylate 10 mg 12/18/20 10:00 12/20/20 11:13 Amlodipine 10 Mg Tab PO 10 mg DAILY JOAO Administration Ascorbic Acid 1,000 mg 12/19/20 10:00 12/20/20 11:14 Ascorbic Acid 500 Mg Tab PO 1,000 mg BID JOAO Administration Cholecalciferol 5,000 unit 12/19/20 10:00 12/20/20 11:13 Cholecalciferol (Vit D3) 5,000 Unit Tab PO 5,000 unit DAILY JOAO Administration Dexamethasone 10 mg 12/18/20 16:00 12/19/20 11:43 Dexamethasone 4 Mg/Ml Vial IV 12/26/20 10:01 10 mg DAILY JOAO Administration Famotidine 20 mg 12/18/20 10:00 12/20/20 11:13 Famotidine 20 Mg Tab PO 20 mg BID JOAO Administration Heparin Sodium (Porcine) 5,000 unit 12/18/20 06:00 12/20/20 05:47 Heparin 5,000 Unit/1 Ml Vial SUB-Q 5,000 unit Q8HR JOAO Administration Hydralazine HCl 10 mg 12/18/20 01:55 Hydralazine 20 Mg/1 Ml Inj IV Q6H PRN Blood Pressure Hydromorphone HCl 0.5 mg 12/18/20 01:52 12/19/20 22:10 Hydromorphone 1 Mg/1 Ml Inj IV 0.5 mg Q3H PRN Administration Pain , Severe (7-10) Ceftriaxone Sodium 2 gm in 100 mls @ 200 mls/hr 12/18/20 10:00 12/20/20 11:14 Rocephin/Ns 2 Gm/100 Ml IV 200 mls/hr Q24HR JOAO Administration Protocol Azithromycin 500 mg in 250 mls @ 250 mls/hr 12/18/20 10:00 12/20/20 11:14 Zithromax/Ns IV 250 mls/hr Q24HR JOAO Administration Protocol REMDESIVIR 100 mg/ Sodium 250 mls @ 500 mls/hr 12/19/20 21:00 12/19/20 22:05 Chloride IV 12/22/20 21:29 500 mls/hr Q24HR@2100 JOAO Administration Ondansetron HCl 4 mg 12/18/20 01:52 Ondansetron 4 Mg/2 Ml Inj IV Q8H PRN Nausea And Vomiting Oxycodone/Acetaminophen 1 tab 12/18/20 01:52 12/20/20 11:13 Oxycodone /Acetaminophen 5-325mg Tab PO 1 tab Q6H PRN Administration Pain, Moderate (4-6) Sodium Chloride 10 ml 12/18/20 10:00 12/20/20 11:14 Sodium Chloride 0.9% 10 Ml Flush Syringe IV 10 ml BID JOAO Administration Sodium Chloride 10 ml 12/18/20 01:52 Sodium Chloride 0.9% 10 Ml Flush Syringe IV PRN PRN LINE FLUSH Sodium Chloride 50 ml 12/18/20 17:00 12/19/20 22:05 Sodium Chloride 0.9% 50 Ml Ivpb IV 12/22/20 21:01 50 ml Q24HR@2100 JOAO Administration Zinc Sulfate 220 mg 12/19/20 10:00 12/20/20 11:13 Zinc Sulfate 220 Mg Cap PO 220 mg BID JOAO Administration
--- NOTE | 2020-12-20 16:05 | Progress Note ---
Assessment and Plan Cultures: SARS CoV2 PCR: positive A/P: 45-year-old female with morbid obesity, asthma, hypertension admitted with: #Bilateral pneumonia due to COVID-19 #Acute hypoxic respiratory failure: on HFNC #Transaminitis #Morbid obesity Recs: IV/PO Dexamethasone 10 mg daily x 10 days continue remdesivir abx discontinued CRP is low, does not meet criteria for Actemra prophylactic anticoagulation based on d-dimer per hospital protocol trend ferritin, LDH, d-dimer, CRP every 2-3 days for risk stratification and to assess disease progression guarded prognosis ID will sign off. Please reconsult if needed. Cristian Frank MD, FACP [facility] O: [phone] F: [phone] Subjective Date of service: 12/20/20 Interval history: No fever. On HFNC. CRP 6.4 Objective - Exam Narrative Exam: Physical Exam (reviewed in chart to minimize risk of transmission) Constitutional: deferred Head, Ears, Nose: deferred Eyes: deferred Neck: deferred Oral: deferred Cardiovascular: deferred Respiratory: deferred GI: deferred Musculoskeletal: deferred Skin: deferred Hem/Lymphatic: deferred Psych: deferred Neurological: deferred - Constitutional Vitals: Vital Signs Temp Pulse Resp BP Pulse Ox 98.0 F 69 24 130/84 95 12/20/20 12:12 12/20/20 12:12 12/20/20 12:12 12/20/20 12:12 12/20/20 12:12 Temperature -Last 24 Hours Temperature 98.0 F Temperature 97.5 F Temperature 97.9 F Temperature 97.5 F - Labs CBC & Chem 7: 12/19/20 04:19 12/20/20 05:21 Labs: Abnormal lab results 12/19/20 12/20/20 Range/Units 21:07 05:21 BUN 22 H (7-17) mg/dL Glucose 137 H (65-100) mg/dL POC Glucose 146 H (70-105) mg/dL AST 42 H (5-40) units/L Albumin 3.1 L (3.9-5) g/dL
[2020-12-20] MEDS: DEXAMETHASONE 4 MG TAB PO SCH (16:16)
[2020-12-20] MEDS: SODIUM CHLORIDE 0.9% 50 ML IVPB IV SCH (22:45)
[2020-12-20] MEDS: REMDESIVIR 100 MG in SODIUM CHLORIDE 0.9% 250ML 250 ML IV SCH (22:45)
[2020-12-21] MEDS: HEPARIN 5,000 UNIT/1 ML VIAL SUB-Q SCH ×3 (05:05→21:45)
[2020-12-21 07:48] LABS: Alanine Aminotransferase 36 units/L (7-56); Albumin 3.2 g/dL (3.9-5); Blood Urea Nitrogen 21 mg/dL (7-17); Calcium 9.1 mg/dL (8.4-10.2); Hemolysis Index 6
[2020-12-21 08:01] LABS: BUN/Creatinine Ratio 30
[2020-12-21] MEDS: cefTRIAXone/NS 2 GM/100 ML 2 GM/100 ML BAG IV SCH (09:01)
[2020-12-21] MEDS: AZITHROMYCIN/NS 500 MG/250 ML 500 MG/250 ML BAG IV SCH (09:02)
[2020-12-21] MEDS: CHOLECALCIFEROL (VIT D3) 5,000 UNIT TAB PO SCH (09:02)
[2020-12-21] MEDS: amLODIPine 10 MG TAB PO SCH (09:02)
[2020-12-21] MEDS: DEXAMETHASONE 4 MG TAB PO SCH (09:02)
[2020-12-21] MEDS: FAMOTIDINE 20 MG TAB PO SCH ×2 (09:02→21:44)
[2020-12-21] MEDS: ZINC SULFATE 220 MG CAP PO SCH ×2 (09:02→21:44)
[2020-12-21] MEDS: ASCORBIC ACID 500 MG TAB PO SCH ×2 (09:02→21:44)
[2020-12-21 10:18] LABS: C-Reactive Protein 1.9 mg/dL (0.00-1.30)
--- NOTE | 2020-12-21 10:57 | Progress Note ---
Assessment and Plan Assessment and plan: - Patient Problems (1) Acute respiratory failure with hypoxia Current Visit: Yes Status: Acute Plan to address problem: Admit the patient to the medical floor. Oxygen by nasal cannula 3 L/min. Al buterol via nebulizer every 4 hours as needed. Rocephin 2 g IV daily. Zithromax 500 mg IV daily. Dexamethasone 6 mg IV daily. Blood cultures sputum culture. Follow Covid PCR and Covid inflammatory marker. Reconsult pulmonary as well as infectious disease for evaluation. (2) Suspected COVID-19 virus infection Current Visit: Yes Status: Acute Plan to address problem: Oxygen by nasal cannula 3 L/min. Albuterol via nebulizer every 4 hours as needed. Rocephin 2 g IV daily. Zithromax 500 mg IV daily. Dexamethasone 6 mg IV daily. Blood cultures sputum culture. Follow Covid PCR and Covid infla mmatory marker. Reconsult pulmonary as well as infectious disease for evaluation. (3) Pneumonia Current Visit: Yes Status: Acute Plan to address problem: Oxygen by nasal cannula 3 L/min. Albuterol via nebulizer every 4 hours as needed. Rocephin 2 g IV daily. Zithromax 500 mg IV daily. Blood cultures sputum culture. (4) Hypertension Current Visit: Yes Status: Acute Plan to address problem: Hydralazine 10 mg IV every 6 hours as needed. Amlodipine 10 mg p.o. daily. We will monitor the blood pressure closely (5) Asthma Current Visit: Yes Status: Acute Plan to address problem: Oxygen by nasal cannula 3 L/min. Albuterol via nebulizer every 4 hours as needed. Dexamethasone 6 mg IV daily. Reconsult pulmonary . (6) DVT prophylaxis Current Visit: Yes Status: Acute Plan to address problem: Heparin 5000 units subcu every 8 hours for DVT prophylaxis. Pepcid 20 mg p.o. twice daily for GI prophylaxis. Patient is a full code 12/19/20 Patient with Covid-19 pneumonia, with acute resp failiure. On Oxygen by NC at 15 l/min. ID and Pulm consulted. Hypoklaemia. Give oral K-dur. 12/20/20 Patient with Covid Pneumonia with acute respiratory failure. She is still on Oxygen by NC 15 l/min. On Remdesivir, Dexameth 12/21/20 Patioent with Covid-19 pneumonia causing acute respirtaory failure. Still has shortness of breath. Continue Oxygen at 15 l/min Continue Remdesivir,dexameth History Interval history: Still has shortness of breath Cough Hospitalist Physical - Physical exam Narrative exam: Gen:Not in acute distress, lying in bed, obese HEENT:Normocephalic, atraumatic Neck:supple, no JVD Lungs: bilateral rales, no wheeze Heart:S1 and S2 reg, no murmurs, rubs or gallop Abd:Soft, non tender, non distended, normal bowel sounds Ext:No edema. no clubbing, no cyanosis Neuro:Awake, alert, oriented X 3, moves all ext, No focal neurological signs - Constitutional Vitals: Temp Pulse Resp BP Pulse Ox 98.2 F 68 18 134/83 94 12/21/20 03:56 12/21/20 03:56 12/21/20 03:56 12/21/20 03:56 12/21/20 10:00 General appearance: Present: no acute distress, well-nourished Results - Labs CBC & Chem 7: 12/19/20 04:19 12/21/20 06:27 Labs: Laboratory Last Values WBC 7.5 K/mm3 (4.5-11.0) 12/19/20 04:19 RBC 4.21 M/mm3 (3.65-5.03) 12/19/20 04:19 Hgb 12.8 gm/dl (10.1-14.3) 12/19/20 04:19 Hct 37.0 % (30.3-42.9) 12/19/20 04:19 MCV 88 fl (79-97) 12/19/20 04:19 MCH 30 pg (28-32) 12/19/20 04:19 MCHC 35 % (30-34) H 12/19/20 04:19 RDW 14.0 % (13.2-15.2) 12/19/20 04:19 Plt Count 334 K/mm3 (140-440) 12/19/20 04:19 Lymph % (Auto) 10.3 % (13.4-35.0) L 12/19/20 04:19 [place] % (Auto) 4.9 % (0.0-7.3) 12/19/20 04:19 Eos % (Auto) 0.0 % (0.0-4.3) 12/19/20 04:19 Baso % (Auto) 1.0 % (0.0-1.8) 12/19/20 04:19 Lymph # (Auto) 0.8 K/mm3 (1.2-5.4) L 12/19/20 04:19 [place] # (Auto) 0.4 K/mm3 (0.0-0.8) 12/19/20 04:19 Eos # (Auto) 0.0 K/mm3 (0.0-0.4) 12/19/20 04:19 Baso # (Auto) 0.1 K/mm3 (0.0-0.1) 12/19/20 04:19 Seg Neutrophils % 83.8 % (40.0-70.0) H 12/19/20 04:19 Seg Neutrophils # 6.3 K/mm3 (1.8-7.7) 12/19/20 04:19 D-Dimer 310.92 ng/mlDDU (0-234) H 12/19/20 04:19 Sodium 144 mmol/L (137-145) 12/21/20 06:27 Potassium 4.3 mmol/L (3.6-5.0) 12/21/20 06:27 Chloride 105.2 mmol/L (98-107) 12/21/20 06:27 Carbon Dioxide 29 mmol/L (22-30) 12/21/20 06:27 Anion Gap 14 mmol/L 12/21/20 06:27 BUN 21 mg/dL (7-17) H 12/21/20 06:27 Creatinine 0.7 mg/dL (0.6-1.2) 12/21/20 06:27 Estimated GFR > 60 ml/min 12/21/20 06:27 BUN/Creatinine Ratio 30 % 12/21/20 06:27 Glucose 149 mg/dL (65-100) H 12/21/20 06:27 POC Glucose 146 mg/dL (70-105) H 12/19/20 21:07 Calcium 9.1 mg/dL (8.4-10.2) 12/21/20 06:27 Ferritin 384.9 ng/mL (10.0-200.0) H 12/19/20 04:19 Total Bilirubin 0.30 mg/dL (0.1-1.2) 12/21/20 06:27 AST 36 units/L (5-40) 12/21/20 06:27 ALT 36 units/L (7-56) 12/21/20 06:27 Alkaline Phosphatase 65 units/L (35-129) 12/21/20 06:27 Lactate Dehydrogenase 491 units/L (91-180) H 12/21/20 06:27 C-Reactive Protein 1.90 mg/dL (0.00-1.30) H 12/21/20 06:27 Total Protein 7.3 g/dL (6.3-8.2) 12/21/20 06:27 Albumin 3.2 g/dL (3.9-5) L 12/21/20 06:27 Albumin/Globulin Ratio 0.8 % 12/21/20 06:27 Procalcitonin 0.08 ng/mL (<0.15) 12/19/20 04:19 Coronavirus (PCR) Positive (Negative) A 12/18/20 Unknown Jarrett/IV: Voiding Method Toilet Active Medications - Current Medications Current Medications: Generic Name Dose Route Start Last Admin Trade Name Freq PRN Reason Stop Dose Admin Acetaminophen 650 mg 12/18/20 01:52 Acetaminophen 325 Mg Tab PO Q4H PRN Pain MILD(1-3)/Fever >100.5/CRISOSTOMO Albuterol 2.5 mg 12/18/20 01:52 12/19/20 00:23 Albuterol 2.5 Mg/3 Ml Nebu IH 2.5 mg Q3HRT PRN Administration Shortness Of Breath Amlodipine Besylate 10 mg 12/18/20 10:00 12/21/20 09:02 Amlodipine 10 Mg Tab PO 10 mg DAILY JOAO Administration Ascorbic Acid 1,000 mg 12/19/20 10:00 12/21/20 09:02 Ascorbic Acid 500 Mg Tab PO 1,000 mg BID JOAO Administration Cholecalciferol 5,000 unit 12/19/20 10:00 12/21/20 09:02 Cholecalciferol (Vit D3) 5,000 Unit Tab PO 5,000 unit DAILY JOAO Administration Dexamethasone 10 mg 12/20/20 13:30 12/21/20 09:02 Dexamethasone 4 Mg Tab PO 12/26/20 13:29 10 mg DAILY JOAO Administration Famotidine 20 mg 12/18/20 10:00 12/21/20 09:02 Famotidine 20 Mg Tab PO 20 mg BID JOAO Administration Heparin Sodium (Porcine) 5,000 unit 12/18/20 06:00 12/21/20 05:05 Heparin 5,000 Unit/1 Ml Vial SUB-Q 5,000 unit Q8HR JOAO Administration Hydralazine HCl 10 mg 12/18/20 01:55 Hydralazine 20 Mg/1 Ml Inj IV Q6H PRN Blood Pressure Hydromorphone HCl 0.5 mg 12/18/20 01:52 12/19/20 22:10 Hydromorphone 1 Mg/1 Ml Inj IV 0.5 mg Q3H PRN Administration Pain , Severe (7-10) Ceftriaxone Sodium 2 gm in 100 mls @ 200 mls/hr 12/18/20 10:00 12/21/20 09:01 Rocephin/Ns 2 Gm/100 Ml IV 12/21/20 12:00 200 mls/hr Q24HR JOAO Administration Protocol Azithromycin 500 mg in 250 mls @ 250 mls/hr 12/18/20 10:00 12/21/20 09:02 Zithromax/Ns IV 12/21/20 12:00 250 mls/hr Q24HR JOAO Administration Protocol REMDESIVIR 100 mg/ Sodium 250 mls @ 500 mls/hr 12/19/20 21:00 12/20/20 22:45 Chloride IV 12/22/20 21:29 500 mls/hr Q24HR@2100 JOAO Administration Ondansetron HCl 4 mg 12/18/20 01:52 Ondansetron 4 Mg/2 Ml Inj IV Q8H PRN Nausea And Vomiting Oxycodone/Acetaminophen 1 tab 12/18/20 01:52 12/20/20 22:45 Oxycodone /Acetaminophen 5-325mg Tab PO 1 tab Q6H PRN Administration Pain, Moderate (4-6) Sodium Chloride 10 ml 12/18/20 10:00 12/21/20 09:03 Sodium Chloride 0.9% 10 Ml Flush Syringe IV 10 ml BID JOAO Administration Sodium Chloride 10 ml 12/18/20 01:52 Sodium Chloride 0.9% 10 Ml Flush Syringe IV PRN PRN LINE FLUSH Sodium Chloride 50 ml 12/18/20 17:00 12/20/20 22:45 Sodium Chloride 0.9% 50 Ml Ivpb IV 12/22/20 21:01 50 ml Q24HR@2100 JOAO Administration Zinc Sulfate 220 mg 12/19/20 10:00 12/21/20 09:02 Zinc Sulfate 220 Mg Cap PO 220 mg BID JOAO Administration
[2020-12-21] MEDS: REMDESIVIR 100 MG in SODIUM CHLORIDE 0.9% 250ML 250 ML IV SCH (21:44)
[2020-12-21] MEDS: SODIUM CHLORIDE 0.9% 50 ML IVPB IV SCH (21:55)
[2020-12-22] MEDS: HEPARIN 5,000 UNIT/1 ML VIAL SUB-Q SCH ×3 (05:52→21:10)
[2020-12-22] MEDS: FAMOTIDINE 20 MG TAB PO SCH ×2 (10:28→21:10)
[2020-12-22] MEDS: CHOLECALCIFEROL (VIT D3) 5,000 UNIT TAB PO SCH (10:28)
[2020-12-22] MEDS: ZINC SULFATE 220 MG CAP PO SCH ×2 (10:28→21:10)
[2020-12-22] MEDS: amLODIPine 10 MG TAB PO SCH (10:28)
[2020-12-22] MEDS: DEXAMETHASONE 4 MG TAB PO SCH (10:29)
[2020-12-22] MEDS: ASCORBIC ACID 500 MG TAB PO SCH ×2 (10:29→21:11)
--- NOTE | 2020-12-22 12:30 | Progress Note ---
Assessment and Plan Assessment and plan: - Patient Problems (1) Acute respiratory failure with hypoxia Current Visit: Yes Status: Acute Plan to address problem: Admit the patient to the medical floor. Oxygen by nasal cannula 3 L/min. Al buterol via nebulizer every 4 hours as needed. Rocephin 2 g IV daily. Zithromax 500 mg IV daily. Dexamethasone 6 mg IV daily. Blood cultures sputum culture. Follow Covid PCR and Covid inflammatory marker. Reconsult pulmonary as well as infectious disease for evaluation. (2) Suspected COVID-19 virus infection Current Visit: Yes Status: Acute Plan to address problem: Oxygen by nasal cannula 3 L/min. Albuterol via nebulizer every 4 hours as needed. Rocephin 2 g IV daily. Zithromax 500 mg IV daily. Dexamethasone 6 mg IV daily. Blood cultures sputum culture. Follow Covid PCR and Covid infla mmatory marker. Reconsult pulmonary as well as infectious disease for evaluation. (3) Pneumonia Current Visit: Yes Status: Acute Plan to address problem: Oxygen by nasal cannula 3 L/min. Albuterol via nebulizer every 4 hours as needed. Rocephin 2 g IV daily. Zithromax 500 mg IV daily. Blood cultures sputum culture. (4) Hypertension Current Visit: Yes Status: Acute Plan to address problem: Hydralazine 10 mg IV every 6 hours as needed. Amlodipine 10 mg p.o. daily. We will monitor the blood pressure closely (5) Asthma Current Visit: Yes Status: Acute Plan to address problem: Oxygen by nasal cannula 3 L/min. Albuterol via nebulizer every 4 hours as needed. Dexamethasone 6 mg IV daily. Reconsult pulmonary . (6) DVT prophylaxis Current Visit: Yes Status: Acute Plan to address problem: Heparin 5000 units subcu every 8 hours for DVT prophylaxis. Pepcid 20 mg p.o. twice daily for GI prophylaxis. Patient is a full code 12/19/20 Patient with Covid-19 pneumonia, with acute resp failiure. On Oxygen by NC at 15 l/min. ID and Pulm consulted. Hypoklaemia. Give oral K-dur. 12/20/20 Patient with Covid Pneumonia with acute respiratory failure. She is still on Oxygen by NC 15 l/min. On Remdesivir, Dexameth 12/21/20 Patient with Covid-19 pneumonia causing acute respiratory failure. Still has shortness of breath. Continue Oxygen at 15 l/min Continue Remdesivir, dexameth 12/22/20 Patioent with Covid-19 pneumonia causing acute respiratory failure. She is still complaining of shortness of breath. Continue Oxygen at 15 l/min Continue Remdesivir, Dexameth Consult Pulmonology since still on 15 l/min History Interval history: Still has shortness of breath Cough Hospitalist Physical - Physical exam Narrative exam: Gen:Not in acute distress, lying in bed, obese HEENT:Normocephalic, atraumatic Neck:supple, no JVD Lungs: bilateral rales, no wheeze Heart:S1 and S2 reg, no murmurs, rubs or gallop Abd:Soft, non tender, non distended, normal bowel sounds Ext:No edema. no clubbing, no cyanosis Neuro:Awake, alert, oriented X 3, moves all ext, No focal neurological signs - Constitutional Vitals: Temp Pulse Resp BP Pulse Ox 97.5 F L 62 22 155/76 94 12/22/20 05:06 12/22/20 05:06 12/22/20 05:06 12/22/20 05:06 12/22/20 07:36 General appearance: Present: no acute distress, well-nourished Results - Labs CBC & Chem 7: 12/19/20 04:19 12/21/20 06:27 Labs: Laboratory Last Values WBC 7.5 K/mm3 (4.5-11.0) 12/19/20 04:19 RBC 4.21 M/mm3 (3.65-5.03) 12/19/20 04:19 Hgb 12.8 gm/dl (10.1-14.3) 12/19/20 04:19 Hct 37.0 % (30.3-42.9) 12/19/20 04:19 MCV 88 fl (79-97) 12/19/20 04:19 MCH 30 pg (28-32) 12/19/20 04:19 MCHC 35 % (30-34) H 12/19/20 04:19 RDW 14.0 % (13.2-15.2) 12/19/20 04:19 Plt Count 334 K/mm3 (140-440) 12/19/20 04:19 Lymph % (Auto) 10.3 % (13.4-35.0) L 12/19/20 04:19 [place] % (Auto) 4.9 % (0.0-7.3) 12/19/20 04:19 Eos % (Auto) 0.0 % (0.0-4.3) 12/19/20 04:19 Baso % (Auto) 1.0 % (0.0-1.8) 12/19/20 04:19 Lymph # (Auto) 0.8 K/mm3 (1.2-5.4) L 12/19/20 04:19 [place] # (Auto) 0.4 K/mm3 (0.0-0.8) 12/19/20 04:19 Eos # (Auto) 0.0 K/mm3 (0.0-0.4) 12/19/20 04:19 Baso # (Auto) 0.1 K/mm3 (0.0-0.1) 12/19/20 04:19 Seg Neutrophils % 83.8 % (40.0-70.0) H 12/19/20 04:19 Seg Neutrophils # 6.3 K/mm3 (1.8-7.7) 12/19/20 04:19 D-Dimer 275.23 ng/mlDDU (0-234) H 12/21/20 10:33 Sodium 144 mmol/L (137-145) 12/21/20 06:27 Potassium 4.3 mmol/L (3.6-5.0) 12/21/20 06:27 Chloride 105.2 mmol/L (98-107) 12/21/20 06:27 Carbon Dioxide 29 mmol/L (22-30) 12/21/20 06:27 Anion Gap 14 mmol/L 12/21/20 06:27 BUN 21 mg/dL (7-17) H 12/21/20 06:27 Creatinine 0.7 mg/dL (0.6-1.2) 12/21/20 06:27 Estimated GFR > 60 ml/min 12/21/20 06:27 BUN/Creatinine Ratio 30 % 12/21/20 06:27 Glucose 149 mg/dL (65-100) H 12/21/20 06:27 POC Glucose 146 mg/dL (70-105) H 12/19/20 21:07 Calcium 9.1 mg/dL (8.4-10.2) 12/21/20 06:27 Ferritin 274.3 ng/mL (10.0-200.0) H 12/21/20 10:33 Total Bilirubin 0.30 mg/dL (0.1-1.2) 12/21/20 06:27 AST 36 units/L (5-40) 12/21/20 06:27 ALT 36 units/L (7-56) 12/21/20 06:27 Alkaline Phosphatase 65 units/L (35-129) 12/21/20 06:27 Lactate Dehydrogenase 491 units/L (91-180) H 12/21/20 06:27 C-Reactive Protein 1.90 mg/dL (0.00-1.30) H 12/21/20 06:27 Total Protein 7.3 g/dL (6.3-8.2) 12/21/20 06:27 Albumin 3.2 g/dL (3.9-5) L 12/21/20 06:27 Albumin/Globulin Ratio 0.8 % 12/21/20 06:27 Procalcitonin 0.08 ng/mL (<0.15) 12/19/20 04:19 Coronavirus (PCR) Positive (Negative) A 12/18/20 Unknown Jarrett/IV: Voiding Method Toilet Active Medications - Current Medications Current Medications: Generic Name Dose Route Start Last Admin Trade Name Freq PRN Reason Stop Dose Admin Acetaminophen 650 mg 12/18/20 01:52 Acetaminophen 325 Mg Tab PO Q4H PRN Pain MILD(1-3)/Fever >100.5/CRISOSTOMO Albuterol 2.5 mg 12/18/20 01:52 12/19/20 00:23 Albuterol 2.5 Mg/3 Ml Nebu IH 2.5 mg Q3HRT PRN Administration Shortness Of Breath Amlodipine Besylate 10 mg 12/18/20 10:00 12/22/20 10:28 Amlodipine 10 Mg Tab PO 10 mg DAILY JOAO Administration Ascorbic Acid 1,000 mg 12/19/20 10:00 12/22/20 10:29 Ascorbic Acid 500 Mg Tab PO 1,000 mg BID JOAO Administration Cholecalciferol 5,000 unit 12/19/20 10:00 12/22/20 10:28 Cholecalciferol (Vit D3) 5,000 Unit Tab PO 5,000 unit DAILY JOAO Administration Dexamethasone 10 mg 12/20/20 13:30 12/22/20 10:29 Dexamethasone 4 Mg Tab PO 12/26/20 13:29 10 mg DAILY JOAO Administration Famotidine 20 mg 12/18/20 10:00 12/22/20 10:28 Famotidine 20 Mg Tab PO 20 mg BID JOAO Administration Heparin Sodium (Porcine) 5,000 unit 12/18/20 06:00 12/22/20 05:52 Heparin 5,000 Unit/1 Ml Vial SUB-Q 5,000 unit Q8HR JOAO Administration Hydralazine HCl 10 mg 12/18/20 01:55 Hydralazine 20 Mg/1 Ml Inj IV Q6H PRN Blood Pressure Hydromorphone HCl 0.5 mg 12/18/20 01:52 12/19/20 22:10 Hydromorphone 1 Mg/1 Ml Inj IV 0.5 mg Q3H PRN Administration Pain , Severe (7-10) REMDESIVIR 100 mg/ Sodium 250 mls @ 500 mls/hr 12/19/20 21:00 12/21/20 21:44 Chloride IV 12/22/20 21:29 500 mls/hr Q24HR@2100 JOAO Administration Ondansetron HCl 4 mg 12/18/20 01:52 Ondansetron 4 Mg/2 Ml Inj IV Q8H PRN Nausea And Vomiting Oxycodone/Acetaminophen 1 tab 12/18/20 01:52 12/20/20 22:45 Oxycodone /Acetaminophen 5-325mg Tab PO 1 tab Q6H PRN Administration Pain, Moderate (4-6) Sodium Chloride 10 ml 12/18/20 10:00 12/22/20 10:28 Sodium Chloride 0.9% 10 Ml Flush Syringe IV 10 ml BID JOAO Administration Sodium Chloride 10 ml 12/18/20 01:52 Sodium Chloride 0.9% 10 Ml Flush Syringe IV PRN PRN LINE FLUSH Sodium Chloride 50 ml 12/18/20 17:00 12/21/20 21:55 Sodium Chloride 0.9% 50 Ml Ivpb IV 12/22/20 21:01 50 ml Q24HR@2100 JOAO Administration Zinc Sulfate 220 mg 12/19/20 10:00 12/22/20 10:28 Zinc Sulfate 220 Mg Cap PO 220 mg BID JOAO Administration
[2020-12-22] MEDS: SODIUM CHLORIDE 0.9% 50 ML IVPB IV SCH (21:10)
[2020-12-22] MEDS: REMDESIVIR 100 MG in SODIUM CHLORIDE 0.9% 250ML 250 ML IV SCH (21:11)
[2020-12-23] MEDS: HEPARIN 5,000 UNIT/1 ML VIAL SUB-Q SCH ×3 (06:32→22:02)
[2020-12-23] MEDS: ASCORBIC ACID 500 MG TAB PO SCH ×2 (09:19→22:02)
[2020-12-23] MEDS: amLODIPine 10 MG TAB PO SCH (09:20)
[2020-12-23] MEDS: CHOLECALCIFEROL (VIT D3) 5,000 UNIT TAB PO SCH (09:20)
[2020-12-23] MEDS: ZINC SULFATE 220 MG CAP PO SCH ×2 (09:22→22:02)
[2020-12-23] MEDS: FAMOTIDINE 20 MG TAB PO SCH ×2 (09:25→22:03)
[2020-12-23] MEDS: DEXAMETHASONE 4 MG TAB PO SCH (09:25)
[2020-12-23 10:19] LABS: C-Reactive Protein 0.5 mg/dL (0.00-1.30)
--- NOTE | 2020-12-23 11:25 | Progress Note ---
Assessment and Plan Assessment and plan: - Patient Problems (1) Acute respiratory failure with hypoxia Current Visit: Yes Status: Acute Plan to address problem: Admit the patient to the medical floor. Oxygen by nasal cannula 3 L/min. Al buterol via nebulizer every 4 hours as needed. Rocephin 2 g IV daily. Zithromax 500 mg IV daily. Dexamethasone 6 mg IV daily. Blood cultures sputum culture. Follow Covid PCR and Covid inflammatory marker. Reconsult pulmonary as well as infectious disease for evaluation. (2) Suspected COVID-19 virus infection Current Visit: Yes Status: Acute Plan to address problem: Oxygen by nasal cannula 3 L/min. Albuterol via nebulizer every 4 hours as needed. Rocephin 2 g IV daily. Zithromax 500 mg IV daily. Dexamethasone 6 mg IV daily. Blood cultures sputum culture. Follow Covid PCR and Covid infla mmatory marker. Reconsult pulmonary as well as infectious disease for evaluation. (3) Pneumonia Current Visit: Yes Status: Acute Plan to address problem: Oxygen by nasal cannula 3 L/min. Albuterol via nebulizer every 4 hours as needed. Rocephin 2 g IV daily. Zithromax 500 mg IV daily. Blood cultures sputum culture. (4) Hypertension Current Visit: Yes Status: Acute Plan to address problem: Hydralazine 10 mg IV every 6 hours as needed. Amlodipine 10 mg p.o. daily. We will monitor the blood pressure closely (5) Asthma Current Visit: Yes Status: Acute Plan to address problem: Oxygen by nasal cannula 3 L/min. Albuterol via nebulizer every 4 hours as needed. Dexamethasone 6 mg IV daily. Reconsult pulmonary . (6) DVT prophylaxis Current Visit: Yes Status: Acute Plan to address problem: Heparin 5000 units subcu every 8 hours for DVT prophylaxis. Pepcid 20 mg p.o. twice daily for GI prophylaxis. Patient is a full code 12/19/20 Patient with Covid-19 pneumonia, with acute resp failiure. On Oxygen by NC at 15 l/min. ID and Pulm consulted. Hypoklaemia. Give oral K-dur. 12/20/20 Patient with Covid Pneumonia with acute respiratory failure. She is still on Oxygen by NC 15 l/min. On Remdesivir, Dexameth 12/21/20 Patient with Covid-19 pneumonia causing acute respiratory failure. Still has shortness of breath. Continue Oxygen at 15 l/min Continue Remdesivir, dexameth 12/22/20 Patioent with Covid-19 pneumonia causing acute respiratory failure. She is still complaining of shortness of breath. Continue Oxygen at 15 l/min Continue Remdesivir, Dexameth Consult Pulmonology since still on 15 l/min 12/23/20 Patioent with Covid-19 pneumonia causing acute respiratory failure. She feels a little better. Less shortness of breath. Oxygen decreased to 10 l/min down from 15 l/min Continue Remdesivir, Dexameth Pulm consulted History Interval history: Less shortness of breath still Cough Hospitalist Physical - Physical exam Narrative exam: Gen:Not in acute distress, lying in bed, obese HEENT:Normocephalic, atraumatic Neck:supple, no JVD Lungs: bilateral rales, no wheeze Heart:S1 and S2 reg, no murmurs, rubs or gallop Abd:Soft, non tender, non distended, normal bowel sounds Ext:No edema. no clubbing, no cyanosis Neuro:Awake, alert, oriented X 3, moves all ext, No focal neurological signs - Constitutional Vitals: Temp Pulse Resp BP Pulse Ox 98.1 F 66 20 174/68 95 12/23/20 04:21 12/23/20 04:21 12/23/20 04:21 12/23/20 09:20 12/23/20 04:21 General appearance: Present: no acute distress, well-nourished Results - Labs CBC & Chem 7: 12/19/20 04:19 12/21/20 06:27 Labs: Laboratory Last Values WBC 7.5 K/mm3 (4.5-11.0) 12/19/20 04:19 RBC 4.21 M/mm3 (3.65-5.03) 12/19/20 04:19 Hgb 12.8 gm/dl (10.1-14.3) 12/19/20 04:19 Hct 37.0 % (30.3-42.9) 12/19/20 04:19 MCV 88 fl (79-97) 12/19/20 04:19 MCH 30 pg (28-32) 12/19/20 04:19 MCHC 35 % (30-34) H 12/19/20 04:19 RDW 14.0 % (13.2-15.2) 12/19/20 04:19 Plt Count 334 K/mm3 (140-440) 12/19/20 04:19 Lymph % (Auto) 10.3 % (13.4-35.0) L 12/19/20 04:19 [place] % (Auto) 4.9 % (0.0-7.3) 12/19/20 04:19 Eos % (Auto) 0.0 % (0.0-4.3) 12/19/20 04:19 Baso % (Auto) 1.0 % (0.0-1.8) 12/19/20 04:19 Lymph # (Auto) 0.8 K/mm3 (1.2-5.4) L 12/19/20 04:19 [place] # (Auto) 0.4 K/mm3 (0.0-0.8) 12/19/20 04:19 Eos # (Auto) 0.0 K/mm3 (0.0-0.4) 12/19/20 04:19 Baso # (Auto) 0.1 K/mm3 (0.0-0.1) 12/19/20 04:19 Seg Neutrophils % 83.8 % (40.0-70.0) H 12/19/20 04:19 Seg Neutrophils # 6.3 K/mm3 (1.8-7.7) 12/19/20 04:19 D-Dimer 354.04 ng/mlDDU (0-234) H 12/23/20 09:32 Sodium 144 mmol/L (137-145) 12/21/20 06:27 Potassium 4.3 mmol/L (3.6-5.0) 12/21/20 06:27 Chloride 105.2 mmol/L (98-107) 12/21/20 06:27 Carbon Dioxide 29 mmol/L (22-30) 12/21/20 06:27 Anion Gap 14 mmol/L 12/21/20 06:27 BUN 21 mg/dL (7-17) H 12/21/20 06:27 Creatinine 0.7 mg/dL (0.6-1.2) 12/21/20 06:27 Estimated GFR > 60 ml/min 12/21/20 06:27 BUN/Creatinine Ratio 30 % 12/21/20 06:27 Glucose 149 mg/dL (65-100) H 12/21/20 06:27 POC Glucose 146 mg/dL (70-105) H 12/19/20 21:07 Calcium 9.1 mg/dL (8.4-10.2) 12/21/20 06:27 Ferritin 217.4 ng/mL (10.0-200.0) H 12/23/20 09:32 Total Bilirubin 0.30 mg/dL (0.1-1.2) 12/21/20 06:27 AST 36 units/L (5-40) 12/21/20 06:27 ALT 36 units/L (7-56) 12/21/20 06:27 Alkaline Phosphatase 65 units/L (35-129) 12/21/20 06:27 Lactate Dehydrogenase 360 units/L (91-180) H 12/23/20 09:32 C-Reactive Protein 0.50 mg/dL (0.00-1.30) 12/23/20 09:32 Total Protein 7.3 g/dL (6.3-8.2) 12/21/20 06:27 Albumin 3.2 g/dL (3.9-5) L 12/21/20 06:27 Albumin/Globulin Ratio 0.8 % 12/21/20 06:27 Procalcitonin 0.08 ng/mL (<0.15) 12/19/20 04:19 Coronavirus (PCR) Positive (Negative) A 12/18/20 Unknown Jarrett/IV: Voiding Method Toilet Active Medications - Current Medications Current Medications: Generic Name Dose Route Start Last Admin Trade Name Freq PRN Reason Stop Dose Admin Acetaminophen 650 mg 12/18/20 01:52 Acetaminophen 325 Mg Tab PO Q4H PRN Pain MILD(1-3)/Fever >100.5/CRISOSTOMO Albuterol 2.5 mg 12/18/20 01:52 12/19/20 00:23 Albuterol 2.5 Mg/3 Ml Nebu IH 2.5 mg Q3HRT PRN Administration Shortness Of Breath Amlodipine Besylate 10 mg 12/18/20 10:00 12/23/20 09:20 Amlodipine 10 Mg Tab PO 10 mg DAILY JOAO Administration Ascorbic Acid 1,000 mg 12/19/20 10:00 12/23/20 09:19 Ascorbic Acid 500 Mg Tab PO 1,000 mg BID JOAO Administration Cholecalciferol 5,000 unit 12/19/20 10:00 12/23/20 09:20 Cholecalciferol (Vit D3) 5,000 Unit Tab PO 5,000 unit DAILY JOAO Administration Dexamethasone 10 mg 12/20/20 13:30 12/23/20 09:25 Dexamethasone 4 Mg Tab PO 12/26/20 13:29 10 mg DAILY JOAO Administration Famotidine 20 mg 12/18/20 10:00 12/23/20 09:25 Famotidine 20 Mg Tab PO 20 mg BID JOAO Administration Heparin Sodium (Porcine) 5,000 unit 12/18/20 06:00 12/23/20 06:32 Heparin 5,000 Unit/1 Ml Vial SUB-Q 5,000 unit Q8HR JOAO Administration Hydralazine HCl 10 mg 12/18/20 01:55 Hydralazine 20 Mg/1 Ml Inj IV Q6H PRN Blood Pressure Hydromorphone HCl 0.5 mg 12/18/20 01:52 12/19/20 22:10 Hydromorphone 1 Mg/1 Ml Inj IV 0.5 mg Q3H PRN Administration Pain , Severe (7-10) Ondansetron HCl 4 mg 12/18/20 01:52 Ondansetron 4 Mg/2 Ml Inj IV Q8H PRN Nausea And Vomiting Oxycodone/Acetaminophen 1 tab 12/18/20 01:52 12/20/20 22:45 Oxycodone /Acetaminophen 5-325mg Tab PO 1 tab Q6H PRN Administration Pain, Moderate (4-6) Sodium Chloride 10 ml 12/18/20 10:00 12/23/20 09:21 Sodium Chloride 0.9% 10 Ml Flush Syringe IV 10 ml BID JOAO Administration Sodium Chloride 10 ml 12/18/20 01:52 Sodium Chloride 0.9% 10 Ml Flush Syringe IV PRN PRN LINE FLUSH Zinc Sulfate 220 mg 12/19/20 10:00 12/23/20 09:22 Zinc Sulfate 220 Mg Cap PO 220 mg BID JOAO Administration
--- NOTE | 2020-12-23 14:47 | Event Note ---
Date: 12/23/20 Patient never showed up on my list until today. There was a consult placed for Dr. Yan who is in my group. Not sure why. Patient with acute respiratory failure secondary to COVID. Has been on 15 liter salter since admission and dropped to 10 today with good sats. Needs to be more aggressive with weaning. On steroids and finished remdesivir. Would have recommended earlier to increase steroids to BID given obesity but with improvement, would suggest continuing current dosing. Will follow.
[2020-12-24] MEDS: HEPARIN 5,000 UNIT/1 ML VIAL SUB-Q SCH ×3 (05:52→23:58)
[2020-12-24 06:30] LABS: Hemoglobin 12.7 gm/dl (10.1-14.3); Mean Corpuscular HGB Conc 33 % (30-34); Mean Corpuscular Volume 88 fl (79-97); Platelet Count 544 K/mm3 (140-440); Red Blood Count 4.34 M/mm3 (3.65-5.03); Red Cell Distribution Width 13.7 % (13.2-15.2)
[2020-12-24 06:42] LABS: Blood Urea Nitrogen 22 mg/dL (7-17); Calcium 8.9 mg/dL (8.4-10.2); Hemolysis Index 4
[2020-12-24 06:47] LABS: BUN/Creatinine Ratio 31
--- NOTE | 2020-12-24 09:39 | Progress Note ---
Assessment and Plan Assessment and plan: Acute hypoxic respiratory failure COVID-19 pneumonia Acute asthma exacerbation Hypertension 12/19/20 Patient with Covid-19 pneumonia, with acute resp failiure. On Oxygen by NC at 15 l/min. ID and Pulm consulted. Hypoklaemia. Give oral K-dur. 12/20/20 Patient with Covid Pneumonia with acute respiratory failure. She is still on Oxygen by NC 15 l/min. On Remdesivir, Dexameth 12/21/20 Patient with Covid-19 pneumonia causing acute respiratory failure. Still has shortness of breath. Continue Oxygen at 15 l/min Continue Remdesivir, dexameth 12/22/20 Patioent with Covid-19 pneumonia causing acute respiratory failure. She is still complaining of shortness of breath. Continue Oxygen at 15 l/min Continue Remdesivir, Dexameth Consult Pulmonology since still on 15 l/min 12/23/20 Patient with Covid-19 pneumonia causing acute respiratory failure. She feels a little better. Less shortness of breath. Oxygen decreased to 10 l/min down from 15 l/min Continue Remdesivir, Dexameth Pulm consulted 12/24/2020. Patient still requiring 10 L/min O2. Patient has completed remdesivir. Continue IV steroids per ID and pulmonary recommendations. History Interval history: No new issues overnight Hospitalist Physical - Constitutional Vitals: Temp Pulse Resp BP Pulse Ox 98.5 F 57 L 16 147/76 98 12/24/20 03:14 12/24/20 03:14 12/24/20 03:14 12/24/20 03:14 12/24/20 03:30 General appearance: Present: no acute distress, well-nourished - EENT Eyes: Present: PERRL, EOM intact ENT: hearing intact, clear oral mucosa, dentition normal - Neck Neck: Present: supple, normal ROM - Respiratory Respiratory effort: normal Respiratory: bilateral: CTA - Cardiovascular Rhythm: regular Heart Sounds: Present: S1 & S2. Absent: gallop, rub - Extremities Extremities: no ischemia, No edema, Full ROM - Abdominal General gastrointestinal: soft, non-tender, non-distended, normal bowel sounds - Integumentary Integumentary: Present: clear, warm, dry - Neurologic Neurologic: CNII-XII intact, moves all extremities Results - Labs CBC & Chem 7: 12/24/20 05:39 12/24/20 05:39 Labs: Laboratory Last Values WBC 9.4 K/mm3 (4.5-11.0) 12/24/20 05:39 RBC 4.34 M/mm3 (3.65-5.03) 12/24/20 05:39 Hgb 12.7 gm/dl (10.1-14.3) 12/24/20 05:39 Hct 38.0 % (30.3-42.9) 12/24/20 05:39 MCV 88 fl (79-97) 12/24/20 05:39 MCH 29 pg (28-32) 12/24/20 05:39 MCHC 33 % (30-34) 12/24/20 05:39 RDW 13.7 % (13.2-15.2) 12/24/20 05:39 Plt Count 544 K/mm3 (140-440) H 12/24/20 05:39 Lymph % (Auto) 10.3 % (13.4-35.0) L 12/19/20 04:19 [place] % (Auto) 4.9 % (0.0-7.3) 12/19/20 04:19 Eos % (Auto) 0.0 % (0.0-4.3) 12/19/20 04:19 Baso % (Auto) 1.0 % (0.0-1.8) 12/19/20 04:19 Lymph # (Auto) 0.8 K/mm3 (1.2-5.4) L 12/19/20 04:19 [place] # (Auto) 0.4 K/mm3 (0.0-0.8) 12/19/20 04:19 Eos # (Auto) 0.0 K/mm3 (0.0-0.4) 12/19/20 04:19 Baso # (Auto) 0.1 K/mm3 (0.0-0.1) 12/19/20 04:19 Seg Neutrophils % 83.8 % (40.0-70.0) H 12/19/20 04:19 Seg Neutrophils # 6.3 K/mm3 (1.8-7.7) 12/19/20 04:19 D-Dimer 354.04 ng/mlDDU (0-234) H 12/23/20 09:32 Sodium 140 mmol/L (137-145) 12/24/20 05:39 Potassium 4.3 mmol/L (3.6-5.0) 12/24/20 05:39 Chloride 107.3 mmol/L (98-107) H 12/24/20 05:39 Carbon Dioxide 25 mmol/L (22-30) 12/24/20 05:39 Anion Gap 12 mmol/L 12/24/20 05:39 BUN 22 mg/dL (7-17) H 12/24/20 05:39 Creatinine 0.7 mg/dL (0.6-1.2) 12/24/20 05:39 Estimated GFR > 60 ml/min 12/24/20 05:39 BUN/Creatinine Ratio 31 % 12/24/20 05:39 Glucose 173 mg/dL (65-100) H 12/24/20 05:39 POC Glucose 146 mg/dL (70-105) H 12/19/20 21:07 Calcium 8.9 mg/dL (8.4-10.2) 12/24/20 05:39 Ferritin 217.4 ng/mL (10.0-200.0) H 12/23/20 09:32 Total Bilirubin 0.30 mg/dL (0.1-1.2) 12/21/20 06:27 AST 36 units/L (5-40) 12/21/20 06:27 ALT 36 units/L (7-56) 12/21/20 06:27 Alkaline Phosphatase 65 units/L (35-129) 12/21/20 06:27 Lactate Dehydrogenase 360 units/L (91-180) H 12/23/20 09:32 C-Reactive Protein 0.50 mg/dL (0.00-1.30) 12/23/20 09:32 Total Protein 7.3 g/dL (6.3-8.2) 12/21/20 06:27 Albumin 3.2 g/dL (3.9-5) L 12/21/20 06:27 Albumin/Globulin Ratio 0.8 % 12/21/20 06:27 Procalcitonin 0.08 ng/mL (<0.15) 12/19/20 04:19 Coronavirus (PCR) Positive (Negative) A 12/18/20 Unknown Jarrett/IV: Voiding Method Toilet Active Medications - Current Medications Current Medications: Generic Name Dose Route Start Last Admin Trade Name Freq PRN Reason Stop Dose Admin Acetaminophen 650 mg 12/18/20 01:52 Acetaminophen 325 Mg Tab PO Q4H PRN Pain MILD(1-3)/Fever >100.5/CRISOSTOMO Albuterol 2.5 mg 12/18/20 01:52 12/19/20 00:23 Albuterol 2.5 Mg/3 Ml Nebu IH 2.5 mg Q3HRT PRN Administration Shortness Of Breath Amlodipine Besylate 10 mg 12/18/20 10:00 12/23/20 09:20 Amlodipine 10 Mg Tab PO 10 mg DAILY JOAO Administration Ascorbic Acid 1,000 mg 12/19/20 10:00 12/23/20 22:02 Ascorbic Acid 500 Mg Tab PO 1,000 mg BID JOAO Administration Cholecalciferol 5,000 unit 12/19/20 10:00 12/23/20 09:20 Cholecalciferol (Vit D3) 5,000 Unit Tab PO 5,000 unit DAILY JOAO Administration Dexamethasone 10 mg 12/20/20 13:30 12/23/20 09:25 Dexamethasone 4 Mg Tab PO 12/26/20 13:29 10 mg DAILY JOAO Administration Famotidine 20 mg 12/18/20 10:00 12/23/20 22:03 Famotidine 20 Mg Tab PO 20 mg BID JOAO Administration Heparin Sodium (Porcine) 5,000 unit 12/18/20 06:00 12/24/20 05:52 Heparin 5,000 Unit/1 Ml Vial SUB-Q 5,000 unit Q8HR JOAO Administration Hydralazine HCl 10 mg 12/18/20 01:55 Hydralazine 20 Mg/1 Ml Inj IV Q6H PRN Blood Pressure Hydromorphone HCl 0.5 mg 12/18/20 01:52 12/19/20 22:10 Hydromorphone 1 Mg/1 Ml Inj IV 0.5 mg Q3H PRN Administration Pain , Severe (7-10) Ondansetron HCl 4 mg 12/18/20 01:52 Ondansetron 4 Mg/2 Ml Inj IV Q8H PRN Nausea And Vomiting Oxycodone/Acetaminophen 1 tab 12/18/20 01:52 12/20/20 22:45 Oxycodone /Acetaminophen 5-325mg Tab PO 1 tab Q6H PRN Administration Pain, Moderate (4-6) Sodium Chloride 10 ml 12/18/20 10:00 12/23/20 22:03 Sodium Chloride 0.9% 10 Ml Flush Syringe IV 10 ml BID JOAO Administration Sodium Chloride 10 ml 12/18/20 01:52 Sodium Chloride 0.9% 10 Ml Flush Syringe IV PRN PRN LINE FLUSH Zinc Sulfate 220 mg 12/19/20 10:00 12/23/20 22:02 Zinc Sulfate 220 Mg Cap PO 220 mg BID JOAO Administration
[2020-12-24] MEDS: CHOLECALCIFEROL (VIT D3) 5,000 UNIT TAB PO SCH (09:46)
[2020-12-24] MEDS: DEXAMETHASONE 4 MG TAB PO SCH (09:46)
[2020-12-24] MEDS: amLODIPine 10 MG TAB PO SCH (09:47)
[2020-12-24] MEDS: ZINC SULFATE 220 MG CAP PO SCH ×2 (09:47→23:59)
[2020-12-24] MEDS: FAMOTIDINE 20 MG TAB PO SCH ×2 (09:47→23:58)
[2020-12-24] MEDS: ASCORBIC ACID 500 MG TAB PO SCH ×2 (09:47→23:58)
--- NOTE | 2020-12-24 11:55 | Progress Note ---
Assessment and Plan 45 y/o obese female with cOVID and acute respiratory failure 1. Wean [place], should be able to come down to at least 6 today 2. Continue steroids 3. Monitor fluid status 4. Guarded prognosis. Subjective Date of service: 12/24/20 Interval history: Stable on 10 liters. needs to be weaned Objective Vital Signs - 12hr 12/24/20 12/24/20 12/24/20 03:14 03:30 09:47 Temperature 98.5 F Pulse Rate 57 L Respiratory 16 Rate Blood Pressure 147/76 147/76 O2 Sat by Pulse 100 98 Oximetry 12/24/20 10:14 Temperature Pulse Rate Respiratory Rate Blood Pressure O2 Sat by Pulse 97 Oximetry CBC and BMP: 12/24/20 05:39 12/24/20 05:39 ABG, PT/INR, D-dimer: PT/INR, D-dimer D-Dimer 354.04 ng/mlDDU (0-234) H 12/23/20 09:32 Abnormal lab findings: Abnormal Labs 12/17/20 12/17/20 12/18/20 23:36 23:36 15:02 MCHC Plt Count Lymph % (Auto) [place] % (Auto) 7.9 H Lymph # (Auto) Seg Neutrophils % D-Dimer Potassium 3.5 L Chloride BUN Glucose 105 H 151 H POC Glucose Calcium 8.2 L Ferritin AST 68 H 69 H Lactate Dehydrogenase C-Reactive Protein Albumin 3.2 L 3.6 L Coronavirus (PCR) 12/18/20 12/19/20 12/19/20 Unknown 04:19 04:19 MCHC 35 H Plt Count Lymph % (Auto) 10.3 L [place] % (Auto) Lymph # (Auto) 0.8 L Seg Neutrophils % 83.8 H D-Dimer 310.92 H Potassium Chloride BUN Glucose POC Glucose Calcium Ferritin AST Lactate Dehydrogenase C-Reactive Protein Albumin Coronavirus (PCR) Positive A 12/19/20 12/19/20 12/19/20 04:19 04:19 21:07 MCHC Plt Count Lymph % (Auto) [place] % (Auto) Lymph # (Auto) Seg Neutrophils % D-Dimer Potassium 3.5 L Chloride BUN Glucose 146 H POC Glucose 146 H Calcium Ferritin 384.9 H AST 66 H Lactate Dehydrogenase C-Reactive Protein 6.40 H Albumin 3.2 L Coronavirus (PCR) 08/12/21/20 12/21/20 05:21 06:27 06:27 MCHC Plt Count Lymph % (Auto) [place] % (Auto) Lymph # (Auto) Seg Neutrophils % D-Dimer Potassium Chloride BUN 22 H 21 H Glucose 137 H 149 H POC Glucose Calcium Ferritin AST 42 H Lactate Dehydrogenase 491 H C-Reactive Protein 1.90 H Albumin 3.1 L 3.2 L Coronavirus (PCR) 12/21/20 12/21/20 12/23/20 10:33 10:33 09:32 MCHC Plt Count Lymph % (Auto) [place] % (Auto) Lymph # (Auto) Seg Neutrophils % D-Dimer 275.23 H 354.04 H Potassium Chloride BUN Glucose POC Glucose Calcium Ferritin 274.3 H AST Lactate Dehydrogenase C-Reactive Protein Albumin Coronavirus (PCR) 12/23/20 12/23/20 12/24/20 09:32 09:32 05:39 MCHC Plt Count 544 H Lymph % (Auto) [place] % (Auto) Lymph # (Auto) Seg Neutrophils % D-Dimer Potassium Chloride BUN Glucose POC Glucose Calcium Ferritin 217.4 H AST Lactate Dehydrogenase 360 H C-Reactive Protein Albumin Coronavirus (PCR) 12/24/20 05:39 MCHC Plt Count Lymph % (Auto) [place] % (Auto) Lymph # (Auto) Seg Neutrophils % D-Dimer Potassium Chloride 107.3 H BUN 22 H Glucose 173 H POC Glucose Calcium Ferritin AST Lactate Dehydrogenase C-Reactive Protein Albumin Coronavirus (PCR)
[2020-12-25] MEDS: HEPARIN 5,000 UNIT/1 ML VIAL SUB-Q SCH ×3 (06:48→22:23)
--- NOTE | 2020-12-25 08:25 | Progress Note ---
Assessment and Plan Assessment and plan: Acute hypoxic respiratory failure COVID-19 pneumonia Acute asthma exacerbation Hypertension 12/19/20 Patient with Covid-19 pneumonia, with acute resp failiure. On Oxygen by NC at 15 l/min. ID and Pulm consulted. Hypoklaemia. Give oral K-dur. 12/20/20 Patient with Covid Pneumonia with acute respiratory failure. She is still on Oxygen by NC 15 l/min. On Remdesivir, Dexameth 12/21/20 Patient with Covid-19 pneumonia causing acute respiratory failure. Still has shortness of breath. Continue Oxygen at 15 l/min Continue Remdesivir, dexameth 12/22/20 Patioent with Covid-19 pneumonia causing acute respiratory failure. She is still complaining of shortness of breath. Continue Oxygen at 15 l/min Continue Remdesivir, Dexameth Consult Pulmonology since still on 15 l/min 12/23/20 Patient with Covid-19 pneumonia causing acute respiratory failure. She feels a little better. Less shortness of breath. Oxygen decreased to 10 l/min down from 15 l/min Continue Remdesivir, Dexameth Pulm consulted 12/24/2020. Patient still requiring 10 L/min O2. Patient has completed remdesivir. Continue IV steroids per ID and pulmonary recommendations. 12/25/2020. Patient has been weaned to 5 L O2. Patient has completed remdesivir. Continue IV steroids per ID and pulmonary recommendations. Prognosis remains guarded. History Interval history: No new issues overnight Hospitalist Physical - Constitutional Vitals: Temp Pulse Resp BP Pulse Ox 97.8 F 50 L 18 150/82 97 12/25/20 04:48 12/25/20 04:48 12/25/20 04:48 12/25/20 04:48 12/25/20 04:48 General appearance: Present: no acute distress, well-nourished - EENT Eyes: Present: PERRL, EOM intact ENT: hearing intact, clear oral mucosa, dentition normal - Neck Neck: Present: supple, normal ROM - Respiratory Respiratory effort: normal Respiratory: bilateral: CTA - Cardiovascular Rhythm: regular Heart Sounds: Present: S1 & S2. Absent: gallop, rub - Extremities Extremities: no ischemia, No edema, Full ROM - Abdominal General gastrointestinal: soft, non-tender, non-distended, normal bowel sounds - Integumentary Integumentary: Present: clear, warm, dry - Neurologic Neurologic: CNII-XII intact, moves all extremities Results - Labs CBC & Chem 7: 12/24/20 05:39 12/24/20 05:39 Labs: Laboratory Last Values WBC 9.4 K/mm3 (4.5-11.0) 12/24/20 05:39 RBC 4.34 M/mm3 (3.65-5.03) 12/24/20 05:39 Hgb 12.7 gm/dl (10.1-14.3) 12/24/20 05:39 Hct 38.0 % (30.3-42.9) 12/24/20 05:39 MCV 88 fl (79-97) 12/24/20 05:39 MCH 29 pg (28-32) 12/24/20 05:39 MCHC 33 % (30-34) 12/24/20 05:39 RDW 13.7 % (13.2-15.2) 12/24/20 05:39 Plt Count 544 K/mm3 (140-440) H 12/24/20 05:39 Lymph % (Auto) 10.3 % (13.4-35.0) L 12/19/20 04:19 [place] % (Auto) 4.9 % (0.0-7.3) 12/19/20 04:19 Eos % (Auto) 0.0 % (0.0-4.3) 12/19/20 04:19 Baso % (Auto) 1.0 % (0.0-1.8) 12/19/20 04:19 Lymph # (Auto) 0.8 K/mm3 (1.2-5.4) L 12/19/20 04:19 [place] # (Auto) 0.4 K/mm3 (0.0-0.8) 12/19/20 04:19 Eos # (Auto) 0.0 K/mm3 (0.0-0.4) 12/19/20 04:19 Baso # (Auto) 0.1 K/mm3 (0.0-0.1) 12/19/20 04:19 Seg Neutrophils % 83.8 % (40.0-70.0) H 12/19/20 04:19 Seg Neutrophils # 6.3 K/mm3 (1.8-7.7) 12/19/20 04:19 D-Dimer 354.04 ng/mlDDU (0-234) H 12/23/20 09:32 Sodium 140 mmol/L (137-145) 12/24/20 05:39 Potassium 4.3 mmol/L (3.6-5.0) 12/24/20 05:39 Chloride 107.3 mmol/L (98-107) H 12/24/20 05:39 Carbon Dioxide 25 mmol/L (22-30) 12/24/20 05:39 Anion Gap 12 mmol/L 12/24/20 05:39 BUN 22 mg/dL (7-17) H 12/24/20 05:39 Creatinine 0.7 mg/dL (0.6-1.2) 12/24/20 05:39 Estimated GFR > 60 ml/min 12/24/20 05:39 BUN/Creatinine Ratio 31 % 12/24/20 05:39 Glucose 173 mg/dL (65-100) H 12/24/20 05:39 POC Glucose 146 mg/dL (70-105) H 12/19/20 21:07 Calcium 8.9 mg/dL (8.4-10.2) 12/24/20 05:39 Ferritin 217.4 ng/mL (10.0-200.0) H 12/23/20 09:32 Total Bilirubin 0.30 mg/dL (0.1-1.2) 12/21/20 06:27 AST 36 units/L (5-40) 12/21/20 06:27 ALT 36 units/L (7-56) 12/21/20 06:27 Alkaline Phosphatase 65 units/L (35-129) 12/21/20 06:27 Lactate Dehydrogenase 360 units/L (91-180) H 12/23/20 09:32 C-Reactive Protein 0.50 mg/dL (0.00-1.30) 12/23/20 09:32 Total Protein 7.3 g/dL (6.3-8.2) 12/21/20 06:27 Albumin 3.2 g/dL (3.9-5) L 12/21/20 06:27 Albumin/Globulin Ratio 0.8 % 12/21/20 06:27 Procalcitonin 0.08 ng/mL (<0.15) 12/19/20 04:19 Coronavirus (PCR) Positive (Negative) A 12/18/20 Unknown Jarrett/IV: Voiding Method Toilet Active Medications - Current Medications Current Medications: Generic Name Dose Route Start Last Admin Trade Name Freq PRN Reason Stop Dose Admin Acetaminophen 650 mg 12/18/20 01:52 Acetaminophen 325 Mg Tab PO Q4H PRN Pain MILD(1-3)/Fever >100.5/CRISOSTOMO Albuterol 2.5 mg 12/18/20 01:52 12/19/20 00:23 Albuterol 2.5 Mg/3 Ml Nebu IH 2.5 mg Q3HRT PRN Administration Shortness Of Breath Amlodipine Besylate 10 mg 12/18/20 10:00 12/24/20 09:47 Amlodipine 10 Mg Tab PO 10 mg DAILY JOAO Administration Ascorbic Acid 1,000 mg 12/19/20 10:00 12/24/20 23:58 Ascorbic Acid 500 Mg Tab PO 1,000 mg BID JOAO Administration Cholecalciferol 5,000 unit 12/19/20 10:00 12/24/20 09:46 Cholecalciferol (Vit D3) 5,000 Unit Tab PO 5,000 unit DAILY JOAO Administration Dexamethasone 10 mg 12/20/20 13:30 12/24/20 09:46 Dexamethasone 4 Mg Tab PO 12/26/20 13:29 10 mg DAILY JOAO Administration Famotidine 20 mg 12/18/20 10:00 12/24/20 23:58 Famotidine 20 Mg Tab PO 20 mg BID JOAO Administration Heparin Sodium (Porcine) 5,000 unit 12/18/20 06:00 12/25/20 06:48 Heparin 5,000 Unit/1 Ml Vial SUB-Q 5,000 unit Q8HR JOAO Administration Hydralazine HCl 10 mg 12/18/20 01:55 Hydralazine 20 Mg/1 Ml Inj IV Q6H PRN Blood Pressure Hydromorphone HCl 0.5 mg 12/18/20 01:52 12/19/20 22:10 Hydromorphone 1 Mg/1 Ml Inj IV 0.5 mg Q3H PRN Administration Pain , Severe (7-10) Ondansetron HCl 4 mg 12/18/20 01:52 Ondansetron 4 Mg/2 Ml Inj IV Q8H PRN Nausea And Vomiting Oxycodone/Acetaminophen 1 tab 12/18/20 01:52 12/20/20 22:45 Oxycodone /Acetaminophen 5-325mg Tab PO 1 tab Q6H PRN Administration Pain, Moderate (4-6) Sodium Chloride 10 ml 12/18/20 10:00 12/24/20 23:58 Sodium Chloride 0.9% 10 Ml Flush Syringe IV 10 ml BID JOAO Administration Sodium Chloride 10 ml 12/18/20 01:52 Sodium Chloride 0.9% 10 Ml Flush Syringe IV PRN PRN LINE FLUSH Zinc Sulfate 220 mg 12/19/20 10:00 12/24/20 23:59 Zinc Sulfate 220 Mg Cap PO 220 mg BID JOAO Administration Nutrition/Malnutrition Assess - Dietary Evaluation Nutrition/Malnutrition Findings: Nutrition Notes Start: 12/24/20 14:26 Freq: Status: Active Protocol: Document 12/24/20 14:26 SARANYA (Rec: 12/24/20 14:26 SARANYA [id number]) Nutrition Notes Need for Assessment generated from: LOS Initial or Follow up Brief Note Subjective/Other Information Screen for LOS. Pt eating 75- 100% of meals. Nutrition Intervention Revisit per MD consult or patient Sign Off request:
[2020-12-25] MEDS: ASCORBIC ACID 500 MG TAB PO SCH ×2 (10:32→22:23)
[2020-12-25] MEDS: FAMOTIDINE 20 MG TAB PO SCH ×2 (10:32→22:23)
[2020-12-25] MEDS: CHOLECALCIFEROL (VIT D3) 5,000 UNIT TAB PO SCH (10:32)
[2020-12-25] MEDS: DEXAMETHASONE 4 MG TAB PO SCH (10:32)
[2020-12-25] MEDS: amLODIPine 10 MG TAB PO SCH (10:34)
[2020-12-25] MEDS: ZINC SULFATE 220 MG CAP PO SCH ×2 (10:35→22:23)
--- NOTE | 2020-12-25 15:24 | Progress Note ---
Assessment and Plan 45 y/o obese female with cOVID and acute respiratory failure Wean FiO2. Needs walk test. WIll need prolonged steroid taper at discharge. Suggest the following. Dex 8 daily for 4 days, then 6 daily for 4 days then 4 daily for 4 days then stop. Hopeful discharge in the next 24-48 hours. Will sign off. 1. Wean [place], should be able to come down to at least 6 today 2. Continue steroids 3. Monitor fluid status 4. Guarded prognosis. Subjective Date of service: 12/25/20 Interval history: Down to 4 liters with good sats. Objective Vital Signs - 12hr 12/25/20 12/25/20 12/25/20 04:48 10:34 12:06 Temperature 97.8 F Pulse Rate 50 L 51 L Respiratory 18 Rate Blood Pressure 150/82 104/65 O2 Sat by Pulse 97 97 Oximetry CBC and BMP: 12/24/20 05:39 12/24/20 05:39 ABG, PT/INR, D-dimer: PT/INR, D-dimer D-Dimer 354.04 ng/mlDDU (0-234) H 12/23/20 09:32 Abnormal lab findings: Abnormal Labs 12/17/20 12/17/20 12/18/20 23:36 23:36 15:02 MCHC Plt Count Lymph % (Auto) [place] % (Auto) 7.9 H Lymph # (Auto) Seg Neutrophils % D-Dimer Potassium 3.5 L Chloride BUN Glucose 105 H 151 H POC Glucose Calcium 8.2 L Ferritin AST 68 H 69 H Lactate Dehydrogenase C-Reactive Protein Albumin 3.2 L 3.6 L Coronavirus (PCR) 12/18/20 12/19/20 12/19/20 Unknown 04:19 04:19 MCHC 35 H Plt Count Lymph % (Auto) 10.3 L [place] % (Auto) Lymph # (Auto) 0.8 L Seg Neutrophils % 83.8 H D-Dimer 310.92 H Potassium Chloride BUN Glucose POC Glucose Calcium Ferritin AST Lactate Dehydrogenase C-Reactive Protein Albumin Coronavirus (PCR) Positive A 12/19/20 12/19/20 12/19/20 04:19 04:19 21:07 MCHC Plt Count Lymph % (Auto) [place] % (Auto) Lymph # (Auto) Seg Neutrophils % D-Dimer Potassium 3.5 L Chloride BUN Glucose 146 H POC Glucose 146 H Calcium Ferritin 384.9 H AST 66 H Lactate Dehydrogenase C-Reactive Protein 6.40 H Albumin 3.2 L Coronavirus (PCR) 12/20/20 12/21/20 12/21/20 05:21 06:27 06:27 MCHC Plt Count Lymph % (Auto) [place] % (Auto) Lymph # (Auto) Seg Neutrophils % D-Dimer Potassium Chloride BUN 22 H 21 H Glucose 137 H 149 H POC Glucose Calcium Ferritin AST 42 H Lactate Dehydrogenase 491 H C-Reactive Protein 1.90 H Albumin 3.1 L 3.2 L Coronavirus (PCR) 12/21/20 12/21/20 12/23/20 10:33 10:33 09:32 MCHC Plt Count Lymph % (Auto) [place] % (Auto) Lymph # (Auto) Seg Neutrophils % D-Dimer 275.23 H 354.04 H Potassium Chloride BUN Glucose POC Glucose Calcium Ferritin 274.3 H AST Lactate Dehydrogenase C-Reactive Protein Albumin Coronavirus (PCR) 12/23/20 12/23/20 12/24/20 09:32 09:32 05:39 MCHC Plt Count 544 H Lymph % (Auto) [place] % (Auto) Lymph # (Auto) Seg Neutrophils % D-Dimer Potassium Chloride BUN Glucose POC Glucose Calcium Ferritin 217.4 H AST Lactate Dehydrogenase 360 H C-Reactive Protein Albumin Coronavirus (PCR) 12/24/20 05:39 MCHC Plt Count Lymph % (Auto) [place] % (Auto) Lymph # (Auto) Seg Neutrophils % D-Dimer Potassium Chloride 107.3 H BUN 22 H Glucose 173 H POC Glucose Calcium Ferritin AST Lactate Dehydrogenase C-Reactive Protein Albumin Coronavirus (PCR)
[2020-12-26] MEDS: HEPARIN 5,000 UNIT/1 ML VIAL SUB-Q SCH ×3 (06:56→21:42)
--- NOTE | 2020-12-26 07:50 | Progress Note ---
Assessment and Plan Assessment and plan: Acute hypoxic respiratory failure COVID-19 pneumonia Acute asthma exacerbation Hypertension 12/19/20 Patient with Covid-19 pneumonia, with acute resp failiure. On Oxygen by NC at 15 l/min. ID and Pulm consulted. Hypoklaemia. Give oral K-dur. 12/20/20 Patient with Covid Pneumonia with acute respiratory failure. She is still on Oxygen by NC 15 l/min. On Remdesivir, Dexameth 12/21/20 Patient with Covid-19 pneumonia causing acute respiratory failure. Still has shortness of breath. Continue Oxygen at 15 l/min Continue Remdesivir, dexameth 12/22/20 Patioent with Covid-19 pneumonia causing acute respiratory failure. She is still complaining of shortness of breath. Continue Oxygen at 15 l/min Continue Remdesivir, Dexameth Consult Pulmonology since still on 15 l/min 12/23/20 Patient with Covid-19 pneumonia causing acute respiratory failure. She feels a little better. Less shortness of breath. Oxygen decreased to 10 l/min down from 15 l/min Continue Remdesivir, Dexameth Pulm consulted 12/24/2020. Patient still requiring 10 L/min O2. Patient has completed remdesivir. Continue IV steroids per ID and pulmonary recommendations. 12/25/2020. Patient has been weaned to 5 L O2. Patient has completed remdesivir. Continue IV steroids per ID and pulmonary recommendations. Prognosis remains guarded. 12/26/2020. Patient's oxygen has been weaned to 4 L O2. Continue to wean supplemental oxygen as tolerated. Walk test prior to discharge. Continue IV steroids per ID and pulmonary recommendations. Prognosis remains guarded. History Interval history: No new issues overnight Hospitalist Physical - Constitutional Vitals: Temp Pulse Resp BP Pulse Ox 97.5 F L 53 L 20 136/69 94 12/26/20 06:00 12/26/20 06:08 12/26/20 06:00 12/26/20 06:00 12/26/20 06:08 General appearance: Present: no acute distress, well-nourished - EENT Eyes: Present: PERRL, EOM intact ENT: hearing intact, clear oral mucosa, dentition normal - Neck Neck: Present: supple, normal ROM - Respiratory Respiratory effort: normal Respiratory: bilateral: CTA - Cardiovascular Rhythm: regular Heart Sounds: Present: S1 & S2. Absent: gallop, rub - Extremities Extremities: no ischemia, No edema, Full ROM - Abdominal General gastrointestinal: soft, non-tender, non-distended, normal bowel sounds - Integumentary Integumentary: Present: clear, warm, dry - Neurologic Neurologic: CNII-XII intact, moves all extremities Results - Labs CBC & Chem 7: 12/24/20 05:39 12/24/20 05:39 Labs: Laboratory Last Values WBC 9.4 K/mm3 (4.5-11.0) 12/24/20 05:39 RBC 4.34 M/mm3 (3.65-5.03) 12/24/20 05:39 Hgb 12.7 gm/dl (10.1-14.3) 12/24/20 05:39 Hct 38.0 % (30.3-42.9) 12/24/20 05:39 MCV 88 fl (79-97) 12/24/20 05:39 MCH 29 pg (28-32) 12/24/20 05:39 MCHC 33 % (30-34) 12/24/20 05:39 RDW 13.7 % (13.2-15.2) 12/24/20 05:39 Plt Count 544 K/mm3 (140-440) H 12/24/20 05:39 Lymph % (Auto) 10.3 % (13.4-35.0) L 12/19/20 04:19 [place] % (Auto) 4.9 % (0.0-7.3) 12/19/20 04:19 Eos % (Auto) 0.0 % (0.0-4.3) 12/19/20 04:19 Baso % (Auto) 1.0 % (0.0-1.8) 12/19/20 04:19 Lymph # (Auto) 0.8 K/mm3 (1.2-5.4) L 12/19/20 04:19 [place] # (Auto) 0.4 K/mm3 (0.0-0.8) 12/19/20 04:19 Eos # (Auto) 0.0 K/mm3 (0.0-0.4) 12/19/20 04:19 Baso # (Auto) 0.1 K/mm3 (0.0-0.1) 12/19/20 04:19 Seg Neutrophils % 83.8 % (40.0-70.0) H 12/19/20 04:19 Seg Neutrophils # 6.3 K/mm3 (1.8-7.7) 12/19/20 04:19 D-Dimer 354.04 ng/mlDDU (0-234) H 12/23/20 09:32 Sodium 140 mmol/L (137-145) 12/24/20 05:39 Potassium 4.3 mmol/L (3.6-5.0) 12/24/20 05:39 Chloride 107.3 mmol/L (98-107) H 12/24/20 05:39 Carbon Dioxide 25 mmol/L (22-30) 12/24/20 05:39 Anion Gap 12 mmol/L 12/24/20 05:39 BUN 22 mg/dL (7-17) H 12/24/20 05:39 Creatinine 0.7 mg/dL (0.6-1.2) 12/24/20 05:39 Estimated GFR > 60 ml/min 12/24/20 05:39 BUN/Creatinine Ratio 31 % 12/24/20 05:39 Glucose 173 mg/dL (65-100) H 12/24/20 05:39 POC Glucose 146 mg/dL (70-105) H 12/19/20 21:07 Calcium 8.9 mg/dL (8.4-10.2) 12/24/20 05:39 Ferritin 217.4 ng/mL (10.0-200.0) H 12/23/20 09:32 Total Bilirubin 0.30 mg/dL (0.1-1.2) 12/21/20 06:27 AST 36 units/L (5-40) 12/21/20 06:27 ALT 36 units/L (7-56) 12/21/20 06:27 Alkaline Phosphatase 65 units/L (35-129) 12/21/20 06:27 Lactate Dehydrogenase 360 units/L (91-180) H 12/23/20 09:32 C-Reactive Protein 0.50 mg/dL (0.00-1.30) 12/23/20 09:32 Total Protein 7.3 g/dL (6.3-8.2) 12/21/20 06:27 Albumin 3.2 g/dL (3.9-5) L 12/21/20 06:27 Albumin/Globulin Ratio 0.8 % 12/21/20 06:27 Procalcitonin 0.08 ng/mL (<0.15) 12/19/20 04:19 Coronavirus (PCR) Positive (Negative) A 12/18/20 Unknown Jarrett/IV: Voiding Method Indwelling Catheter Active Medications - Current Medications Current Medications: Generic Name Dose Route Start Last Admin Trade Name Freq PRN Reason Stop Dose Admin Acetaminophen 650 mg 12/18/20 01:52 Acetaminophen 325 Mg Tab PO Q4H PRN Pain MILD(1-3)/Fever >100.5/CRISOSTOMO Albuterol 2.5 mg 12/18/20 01:52 12/19/20 00:23 Albuterol 2.5 Mg/3 Ml Nebu IH 2.5 mg Q3HRT PRN Administration Shortness Of Breath Amlodipine Besylate 10 mg 12/18/20 10:00 12/25/20 10:34 Amlodipine 10 Mg Tab PO Not Given DAILY JOAO Ascorbic Acid 1,000 mg 12/19/20 10:00 12/25/20 22:23 Ascorbic Acid 500 Mg Tab PO 1,000 mg BID JOAO Administration Cholecalciferol 5,000 unit 12/19/20 10:00 12/25/20 10:32 Cholecalciferol (Vit D3) 5,000 Unit Tab PO 5,000 unit DAILY JOAO Administration Dexamethasone 10 mg 12/20/20 13:30 12/25/20 10:32 Dexamethasone 4 Mg Tab PO 12/26/20 13:29 10 mg DAILY JOAO Administration Famotidine 20 mg 12/18/20 10:00 12/25/20 22:23 Famotidine 20 Mg Tab PO 20 mg BID JOAO Administration Heparin Sodium (Porcine) 5,000 unit 12/18/20 06:00 12/26/20 06:56 Heparin 5,000 Unit/1 Ml Vial SUB-Q 5,000 unit Q8HR JOAO Administration Hydralazine HCl 10 mg 12/18/20 01:55 Hydralazine 20 Mg/1 Ml Inj IV Q6H PRN Blood Pressure Hydromorphone HCl 0.5 mg 12/18/20 01:52 12/19/20 22:10 Hydromorphone 1 Mg/1 Ml Inj IV 0.5 mg Q3H PRN Administration Pain , Severe (7-10) Ondansetron HCl 4 mg 12/18/20 01:52 Ondansetron 4 Mg/2 Ml Inj IV Q8H PRN Nausea And Vomiting Oxycodone/Acetaminophen 1 tab 12/18/20 01:52 12/20/20 22:45 Oxycodone /Acetaminophen 5-325mg Tab PO 1 tab Q6H PRN Administration Pain, Moderate (4-6) Sodium Chloride 10 ml 12/18/20 10:00 12/25/20 22:26 Sodium Chloride 0.9% 10 Ml Flush Syringe IV 10 ml BID JOAO Administration Sodium Chloride 10 ml 12/18/20 01:52 Sodium Chloride 0.9% 10 Ml Flush Syringe IV PRN PRN LINE FLUSH Zinc Sulfate 220 mg 12/19/20 10:00 12/25/20 22:23 Zinc Sulfate 220 Mg Cap PO 220 mg BID JOAO Administration Nutrition/Malnutrition Assess - Dietary Evaluation Nutrition/Malnutrition Findings: Nutrition Notes Start: 12/24/20 14:26 Freq: Status: Active Protocol: Document 12/24/20 14:26 (Rec: 12/24/20 14:26 [id number]) Nutrition Notes Need for Assessment generated from: LOS Initial or Follow up Brief Note Subjective/Other Information Screen for LOS. Pt eating 75- 100% of meals. Nutrition Intervention Revisit per MD consult or patient Sign Off request:
[2020-12-26] MEDS: DEXAMETHASONE 4 MG TAB PO SCH (10:18)
[2020-12-26] MEDS: ZINC SULFATE 220 MG CAP PO SCH ×2 (10:18→21:41)
[2020-12-26] MEDS: CHOLECALCIFEROL (VIT D3) 5,000 UNIT TAB PO SCH (10:19)
[2020-12-26] MEDS: ASCORBIC ACID 500 MG TAB PO SCH ×2 (10:19→21:41)
[2020-12-26] MEDS: FAMOTIDINE 20 MG TAB PO SCH ×2 (10:19→21:42)
[2020-12-26] MEDS: amLODIPine 10 MG TAB PO SCH (10:28)
[2020-12-27] MEDS: HEPARIN 5,000 UNIT/1 ML VIAL SUB-Q SCH (05:51)
--- NOTE | 2020-12-27 10:12 | Discharge Summary ---
Providers - Providers Date of Admission: 12/18/20 01:52 Date of discharge: 12/27/20 Attending physician: AGUSTO GOMEZ 12/18/20 01:52 Consult to Physician [CONS] Routine Comment: Consulting Provider: SILVIANO WALLACE Physician Instructions: Reason For Exam: covid Primary care physician: BOOTH USHER Hospitalization Reason for admission: COVID-19 pneumonia, acute hypoxic respiratory failure Condition: Stable Hospital course: The patient is a 45-year-old female with morbid obesity, asthma, hypertension admitted with shortness of breath, cough. Got Covid test done as an outpatient but results are not available. Upon evaluation in the ER, febrile with a T-max of 102.6 F, noted to be hypoxic requiring nonrebreather mask. Labs showed normal WBC, creatinine normal, mild transaminitis. Other markers are pending. Chest x-ray showed severe bilateral airspace disease. The patient was admitted with diagnosis of acute hypoxic respiratory failure, COVID-19 pneumonia, sepsis, hypertension and acute asthma exacerbation. Hospital course: 12/19/20 Patient with Covid-19 pneumonia, with acute resp failiure. On Oxygen by NC at 15 l/min. ID and Pulm consulted. Hypoklaemia. Give oral K-dur. 12/20/20 Patient with Covid Pneumonia with acute respiratory failure. She is still on Oxygen by NC 15 l/min. On Remdesivir, Dexameth 12/21/20 Patient with Covid-19 pneumonia causing acute respiratory failure. Still has shortness of breath. Continue Oxygen at 15 l/min Continue Remdesivir, dexameth 12/22/20 Patioent with Covid-19 pneumonia causing acute respiratory failure. She is still complaining of shortness of breath. Continue Oxygen at 15 l/min Continue Remdesivir, Dexameth Consult Pulmonology since still on 15 l/min 12/23/20 Patient with Covid-19 pneumonia causing acute respiratory failure. She feels a little better. Less shortness of breath. Oxygen decreased to 10 l/min down from 15 l/min Continue Remdesivir, Dexameth Pulm consulted 12/24/2020. Patient still requiring 10 L/min O2. Patient has completed remdesivir. Continue IV steroids per ID and pulmonary recommendations. 12/25/2020. Patient has been weaned to 5 L O2. Patient has completed remdesivir. Continue IV steroids per ID and pulmonary recommendations. Prognosis remains guarded. 12/26/2020. Patient's oxygen has been weaned to 4 L O2. Continue to wean supplemental oxygen as tolerated. Walk test prior to discharge. Continue IV steroids per ID and pulmonary recommendations. Prognosis remains guarded. 12/27/2020. Patient's oxygen requirement has been decreased to 2 L. We will discharge with home oxygen and steroids. Dedicated discharge time 35 minutes Disposition: 01 HOME / SELF CARE / HOMELESS Final Discharge Diagnosis (Prints w/discharge instructions): Acute hypoxic respiratory failure, sepsis, COVID-19 pneumonia, acute asthma exacerbation Core Measure Documentation - Palliative Care Palliative Care/ Comfort Measures: Not Applicable - Core Measures Any of the following diagnoses?: none Exam - Constitutional Vitals: Temp Pulse Resp BP Pulse Ox 98.2 F 55 L 18 127/68 98 12/27/20 04:30 12/27/20 04:30 12/27/20 04:30 12/27/20 04:30 12/27/20 04:30 General appearance: Present: no acute distress, well-nourished - EENT Eyes: Present: PERRL ENT: hearing intact, clear oral mucosa - Neck Neck: Present: supple, normal ROM - Respiratory Respiratory effort: normal Respiratory: bilateral: CTA - Cardiovascular Heart Sounds: Present: S1 & S2. Absent: rub, click - Extremities Extremities: pulses symmetrical, No edema Peripheral Pulses: within normal limits - Abdominal General gastrointestinal: Present: soft, non-tender, non-distended, normal bowel sounds Female genitourinary: Present: normal - Integumentary Integumentary: Present: clear, warm, dry - Musculoskeletal Musculoskeletal: gait normal, strength equal bilaterally - Psychiatric Psychiatric: appropriate mood/affect, intact judgment & insight - Neurologic Neurologic: CNII-XII intact, moves all extremities Plan Activity: no restrictions Weight Bearing Status: Weight Bear as Tolerated Diet: low fat, low cholesterol, low salt Durable Medical Equipment Needed Upon Discharge: Oxygen Follow up with: PRIMARY CARE, [Primary Care Provider] - 7 Days Prescriptions: amLODIPine 10 mg PO DAILY #20 tab dexAMETHasone [Decadron] 2 mg PO DAILY #36 tablet hydroCHLOROthiazide [Hydrochlorothiazide] 50 mg PO DAILY #30 Ascorbic Acid [Vitamin C] 1,000 mg PO BID #60 tablet Cholecalciferol (Vitamin D3) [Vitamin D3] 5,000 unit PO DAILY #30 tablet Zinc Sulfate 220 mg PO BID #60 capsule
[2020-12-27] MEDS: ZINC SULFATE 220 MG CAP PO SCH (10:29)
[2020-12-27] MEDS: amLODIPine 10 MG TAB PO SCH (10:29)
[2020-12-27] MEDS: FAMOTIDINE 20 MG TAB PO SCH (10:29)
[2020-12-27] MEDS: CHOLECALCIFEROL (VIT D3) 5,000 UNIT TAB PO SCH (10:29)
[2020-12-27] MEDS: ASCORBIC ACID 500 MG TAB PO SCH (10:29)
[2020-12-27 16:34] VITALS: BP 99/54
== END 2020-12-27 19:21 | disposition home or self-care (01) | DRG 177 ==
LOC: ED 21:42 → 3A 12-18 01:52 → UNDODISIN 12-23 07:30
PROVIDERS: ADMIT Hospitalist; ATTEND Hospitalist
PROC: XW033E5 Introduction of Remdesivir Anti-infective into Peripheral Vein, Percutaneous Approach, New Technology Group 5 (ICD-10-PCS; principal; 2020-12-18)
DX: U07.1 COVID-19 (principal); J12.82 Pneumonia due to coronavirus disease 2019; J96.01 Acute respiratory failure with hypoxia; J45.901 Unspecified asthma with (acute) exacerbation; Z68.42 Body mass index [BMI] 45.0-49.9, adult; Z86.79 Personal history of other diseases of the circulatory system; I10 Essential (primary) hypertension; Z90.49 Acquired absence of other specified parts of digestive tract; Z71.3 Dietary counseling and surveillance; E66.01 Morbid (severe) obesity due to excess calories
CPT/HCPCS: 36415; 71046; 80048; 80053; 82728; 82962; 83615; 84145; 85025; 85027; 85379; 86140; 94644; 94760; 96374; G0378; J0456; J0696; J1100; J1170; J1644; J7050; J8540; U0003